=== PATIENT | male | born 1950 | race Two or more races ===

== ENCOUNTER 2024-05-27 09:20 | Day surgery (SDC) | payer BC, SELFPAY ==
[2024-05-27] VITALS (14 sets, daily range): BP systolic 124–163; BP diastolic 66–92; BMI 24.2
[2024-05-27 11:26] LABS: ACT-LR - POC 347 Seconds (116-155)
--- NOTE | 2024-05-27 12:56 | ITS.CL.CATH ---
Switch Engineer - Catheterization
Cardiac Catheterization
Procedure Report:
CARDIAC CATHETERIZATION REPORT
Date of Procedure: 05/27/2024
Referring: Omer Garcia DO
Indication: Persistent and worsening angina despite minimally abnormal stress test
HEMODYNAMIC DATA
AO: 156/81
LV: 156/17
LEFT VENTRICULOGRAPHY: Normal left ventricular wall motion with EF 63%
CORONARY ANGIOGRAPHY
Dominance: Right
Left Main: Normal
LAD: Moderate calcification with 30% ostial/proximal stenosis. There is 90% mid LAD stenosis distal to the takeoff of the first septal garment form assembler and large bifurcating D1. There is 30% mid LAD stenosis about 20 mm more distally. The distal LAD
has trivial luminal disease. The large proximally bifurcating D1 has 80-90% stenosis in the much larger daughter branch starting at the ostium of the bifurcation site
Circumflex: Medium sized ramus intermedius branch is free of disease. OM1 and OM 2 are tiny branches. There is 30% proximal and 50% mid stenoses in the large terminal OM 3.
RCA: Large dominant vessel with 30% proximal RCA stenosis and 40% RCA stenosis in the midportion proximal to the crux. The large bifurcating PDA and large posterolateral system have trivial luminal disease.
Angioplasty: At the conclusion of the diagnostic study, we proceeded with LAD PCI. This was to be a complex intervention involving the large daughter branch of D1 and the mid LAD. Heparin was used for anticoagulation. Ultimately Integrilin double
bolus without infusion was given in the middle of the procedure and Plavix 600 mg at the procedure conclusion. A short BMW wire was advanced into the first diagonal branch. It was quite difficult to navigate this wire into the severely diseased
daughter branch distal to the bifurcation site but we were able to get this accomplished. A long BMW wire was then advanced and we were not able to get this across the severe calcific mid LAD stenosis. This wire was replaced with a whisper wire
which we were able to navigate with difficulty into the distal LAD. At this point balloon angioplasty of the long 80-90% D1 stenosis was accomplished with a 2.0 x 15 trek balloon to 8 jaylene. The lesion was dramatically improved after balloon
angioplasty and we followed with placement of a 2.0 x 18 [place] CAMILLA deployed at 14 jaylene. The angiographic result was outstanding and there was complete stent expansion. At this point, we turned our attention to the LAD lesion. It was clear
that we would have to halfway D1 with an appropriately placed stent to treat the LAD lesion. The ostium of D1 was not significantly stenosed and I felt the risk of plaque shift compromising the origin of D1 would be quite low. Balloon angioplasty of
the LAD lesion was accomplished with the 2.0 x 12 trek to 12 jaylene with serial inflations to treat the length of the lesion. We then placed a 3.0 x 28 Xience [place] CAMILLA to cover the entire segment of LAD disease. The stent was deployed at 14 jaylene.
Following stent deployment the patient experienced ongoing chest discomfort with anterior ST elevation on the monitor. Angiography showed the stented LAD to be widely patent; however, the first diagonal branch was now occluded at its origin.
Neither a BMW nor a whisper wire could be advanced through the side struts of the LAD stent into the large bifurcating D1. Fortunately, we were able to get a Fielder XT wire through the side struts of the LAD stent and into the stented daughter
branch of D1. Flow has been spontaneously restored. We then performed balloon angioplasty with a 2.0 x 12 trek balloon to 12 jaylene to treat the ostium of D1 and to dilate the LAD stent struts. This restored excellent flow into the diagonal branch.
At this point, we postdilated the LAD stent with a 3.0 NC trek to 17 jaylene along its entire length. We then attempted unsuccessfully to pass a 2.0 x 12 [place] CAMILLA into the diagonal branch with a plan to stent back to the origin of the diagonal (T
stent). The stent would not advance across the struts of the LAD stent. The undeployed stent was carefully removed and a more aggressive balloon inflation with a 2.0 x 12 NC trek to 14 jaylene was performed into D1. This maneuver did not allow easy
passage of the stent across the struts of the LAD stent and angiography demonstrated an excellent result with balloon angioplasty alone. We therefore did not use more aggressive measures such as use of a guide liner to get a stent into the diagonal
branch. LAD and diagonal stent wires were removed and final angiography performed in multiple projections demonstrating an outstanding angiographic result both in the LAD and in the diagonal branch with normal antegrade flow in both branches and no
residual stenosis.
Closure Device: None-the procedure was performed via the right radial artery. The Crispin's test was normal prior to the procedure.
Radiation (mGy): 822
DAP (cm2.Gy): 59.9
Fluoroscopy time: 20.8 minutes
CONCLUSIONS
1: Systemic hypertension
2: Normal left ventricular function with EF 63%
3. Multivessel CAD as described
4. Culprit vessel PCI to treat complex mid LAD and D1 disease
5. Successful placement of 3.0 x 28 Xience CAMILLA in the LAD
6. Successful placement of 2.0 x 18 [place] CAMILLA in the first diagonal branch
7. Successful rescue of plaque shift ostial occlusion of D1 following placement of LAD stent using 2.0 mm angioplasty
8. Recommend dual antiplatelet therapy for 12 months and aggressive risk factor modification efforts
Copy to: Omer Garcia DO, Donald Hope DO
Richard Cottrell MD, [facility], [facility]
--- NOTE | 2024-05-27 13:15 | PTCARENOTE ---
Received pt from medical laboratory specialist. Right radial site CDI. VSS, SR on tele monitor. EDucated on limb restrictions and expected OOB time. Oriented to room and unit. Call fernandez within reach.
[2024-05-27 13:23] LABS: Glucose - Point of Care 131 mg/dl (70-99)
--- NOTE | 2024-05-27 15:48 | CM ---
CM following for DC planning needs.
Met w/ patient at bedside to complete initial assessment.
Pt. reports that he resides in a private home w/ his spouse.
He is functionally indep. prior to admission w/ ADLs, mobility without the use of any assisted device.
Anticipated DC plan is for home, no needs.
Will cont. to follow.
[2024-05-27 16:24] LABS: Glucose - Point of Care 166 mg/dl (70-99)
[2024-05-27] MEDS: ADVAIR HFA 45/21 MCG INHALER 2 PUFF INH (20:53)
[2024-05-27 22:39] LABS: Glucose - Point of Care 145 mg/dl (70-99)
--- NOTE | 2024-05-28 01:37 | PTCARENOTE ---
Patient is sleeping at this time. No changes from Initial assessment. Right radial site CDI. SR in 70s on tele. will continue to monitor
[2024-05-28 03:57] VITALS: BP 131/79
[2024-05-28 04:30] LABS: Hemoglobin 12.7 g/dL (13.0-18.0); Mean Corp Hgb Conc. 34.3 g/dL (33.0-37.0); Mean Corpuscular Hgb 31.2 pg (27.0-31.0); Mean Corpuscular Volume 90.9 fL (80.0-94.0); Mean Platelet Volume 10.3 fL (7.4-10.4); Platelet Count 205 10^3/uL (130-400); Red Blood Cell Count 4.07 10^6/uL (4.70-6.10); Red Cell Dist. Width 11.9 % (11.5-14.5); White Blood Cell Count 8.5 10^3/uL (4.8-10.8)
[2024-05-28 04:56] LABS: Blood Urea Nitrogen 15 mg/dl (9-20); Calcium 9.2 mg/dl (8.4-10.2); Carbon Dioxide 27 mmol/L (22-30); Chloride 104 mmol/L (98-107); Estimated Creatinine Clearance 88 ml/min; Glucose 139 mg/dl (70-99); HDL Cholesterol 42 mg/dl; LDL Cholesterol, Calculated 53 mg/dl; Potassium 3.8 mmol/L (3.5-5.1); Sodium 138 mmol/L (135-145); Total Cholesterol 116 mg/dl (50-199); Triglyceride 106 mg/dl (10-149); Very Low Density Lipoprotein 21 mg/dl (0-30); eGFR > 60.00
[2024-05-28 06:00] VITALS: BMI 23.6
[2024-05-28] MEDS: ADVAIR HFA 45/21 MCG INHALER 2 PUFF INH (07:36)
[2024-05-28 07:54] VITALS: BP 136/82
[2024-05-28 07:59] LABS: Glucose - Point of Care 149 mg/dl (70-99)
[2024-05-28] MEDS: PROSCAR 5 MG PO (09:17)
[2024-05-28] MEDS: COZAAR 25 MG PO (09:20)
[2024-05-28] MEDS: PEPCID 20 MG PO (09:20)
[2024-05-28] MEDS: IMDUR (EXTENDED RELEASE) 30 MG PO (09:21)
[2024-05-28] MEDS: ORETIC 12.5 MG PO (09:21)
--- NOTE | 2024-05-28 09:31 | W.PN.UPDATE ---
Update Note
Progress Note Update
Mr. Nuno feels well s/p cath with PCI. Right radial site healed, no bruit/hematoma. Stable vitals, labs and tele. All questions answered, reviewed d/c medications and instructions and he and his verbalized understanding. Stable for d/c
home today.
--- NOTE | 2024-05-28 09:34 | W.DS.TRANS ---
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
-
Discharge Instructions:
Discharge Diagnosis/Procedures Angioplasty and stent x1 to Left Anterior
Descending and x1 to Diagonal arteries
Diet Low Cholesterol,Diabetic, Carb Controlled
Driving Restrictions No driving for 24 hours
Other Services Cardiac Rehab
Instructions:
Stand-Alone Forms: DC Instructions- Cath/EP Lab
Changes to Home Medications: Yes
Discharge Medications:
DC Medications w/original date entered in [employer]
aspirin 81 mg tablet,delayed release 81 mg PO DAILY 05/27/24
atorvastatin 40 mg tablet 40 mg PO QPM #90 tabs 05/27/24
clopidogrel 75 mg tablet 75 mg PO DAILY #90 tabs 05/27/24
dutasteride 0.5 mg capsule 0.5 mg PO DAILY 05/27/24
famotidine 20 mg tablet 20 mg PO DAILY 05/27/24
fluticasone 100 mcg-salmeterol 50 mcg/dose blistr powdr for inhalation 1 inh inhalation BID 05/27/24
hydrochlorothiazide 12.5 mg tablet 12.5 mg PO DAILY 05/27/24
isosorbide mononitrate 30 mg tablet,extended release 24 hr 30 mg PO DAILY 05/27/24
losartan 25 mg tablet 25 mg PO DAILY 05/27/24
meclizine 25 mg tablet 25 mg PO TIDPRN PRN dizziness, vertigo 05/27/24
metformin 500 mg 24 hr tablet,extended release (gastric retention) 500 mg PO BID 05/27/24
nitroglycerin 0.4 mg sublingual tablet 0.4 mg sublingual [id number] PRN chest pain #25 tabs 05/27/24
pantoprazole 40 mg tablet,delayed release 40 mg PO BID #60 tabs 05/27/24
Home Medication Changes
Lipitor, Plavix, Protonix are new.
Pending Results: No
[2024-05-28 09:49] LABS: Glycohemoglobin (HgbA1c) 6.8 % (4.0-5.6)
--- NOTE | 2024-05-28 10:37 | W.PN.CD ---
Today's Communication / Plan
-
OK for d/c home
Impression / Plan
-
CAD s/p CAMILLA x2
- cont aspirin plavix Imdur
- atorvastatin 40
GERD
- cont famotidine
HTN
- cont losartan and hctz
Subjective: CP free overall feels well and anticipating d/c home
Physical Exam
Vital Signs/Labs
Vital Signs
Temp Pulse Resp BP Pulse Ox
98.2 F 71 18 136/82 97
05/28/24 07:51 05/28/24 08:00 05/28/24 07:51 05/28/24 07:54 05/28/24 07:51
05/27/24 05/28/24 05/29/24
06:59 06:59 06:59
Actual Weight 150 lb 12.739 oz
05/28/24 04:10
05/28/24 04:10
Triglycerides 106 mg/dl (10-149) 05/28/24 04:10
LDL Cholesterol, Calc 53 mg/dl 05/28/24 04:10
VLDL Cholesterol, Calc 21 mg/dl (0-30) 05/28/24 04:10
HDL Cholesterol 42 mg/dl 05/28/24 04:10
Physical Exam
Constitutional: No acute distress and Comfortable
Cardiovascular: Rhythm & rate is regular and Pedal edema is absent
Respiratory: Respiratory effort normal
GI: Soft
Neuro/Psych: AO x 3
Data Reviewed
-
Date of Service: May 28, 2024
EKG: Tracing Personally Visualized and interpreted (sr)
Labs: Labs Reviewed by me
--- NOTE | 2024-05-28 10:40 | PTCARENOTE ---
Assumed care of pt from night RN. Pt refused awake and alert, Ox3. VSS, CM shows NSR 80-90's, POX 97% on RA. Right radial site remains CDI with normal CMS. Pt denies any pain or discomfort. For potential D/C today.
[2024-05-28 12:11] VITALS: BP 126/81
[2024-05-28 13:02] LABS: Glucose - Point of Care 118 mg/dl (70-99)
--- NOTE | 2024-05-28 14:00 | PTCARENOTE ---
All D/C instructions reviewed with pt sand spouse. All questions answered. Pt D/C'd home with spouse.
[2024-05-30 08:32] LABS: ACT-LR - POC > 397 Seconds (116-155)
[2024-05-30 08:32] LABS: ACT-LR - POC > 397 Seconds (116-155)
== END 2024-05-28 14:01 | disposition home or self-care (01) ==
LOC: CATH 09:20
PROVIDERS: Nurse Practitioner; ATTENDING PHYSICIAN Internal Medicine Cardiovascular Disease
DX: I25.110 Atherosclerotic heart disease of native coronary artery with unstable angina pectoris (principal); I10 Essential (primary) hypertension; E78.5 Hyperlipidemia, unspecified; E11.9 Type 2 diabetes mellitus without complications; N40.0 Benign prostatic hyperplasia without lower urinary tract symptoms; K21.9 Gastro-esophageal reflux disease without esophagitis; J45.909 Unspecified asthma, uncomplicated; I67.1 Cerebral aneurysm, nonruptured; R94.39 Abnormal result of other cardiovascular function study; Z79.02 Long term (current) use of antithrombotics/antiplatelets; Z79.82 Long term (current) use of aspirin
CPT/HCPCS: 80048; 80061; 82962; 83036; 85027; 85347; 93005; 93458; 94640; C1725; C1769; C1874; C1894; C9600; C9601; J1327; Q9967

== ENCOUNTER 2024-06-09 11:02 | Emergency (ER) | payer BC, SELFPAY ==
[2024-06-09 11:10] VITALS: BP 140/80
[2024-06-09 11:16] VITALS: BMI 25.1
[2024-06-09 11:20] VITALS: BP 126/76
[2024-06-09 11:33] LABS: % Basophils 0.4 % (0-2); % Eosinophils 2.4 % (0-6); % Immature Granulocytes 0.4 % (0-0.5); % Lymphocytes 16.5 % (20.5-51.1); % Monocytes 5.1 % (1.7-9.3); % Neutrophils 75.2 % (42.2-75.2); Absolute Eosinophils 0.2 10^3/uL (0-0.7); Absolute Lymphocytes 1.2 10^3/uL (1.2-3.4); Absolute Monocytes 0.4 10^3/uL (0.1-0.6); Absolute Neutrophils 5.3 10^3/uL (1.4-6.5); Hematocrit 38.3 % (39.0-52.0); Mean Corp Hgb Conc. 33.9 g/dL (33.0-37.0); Mean Corpuscular Hgb 31.6 pg (27.0-31.0); Mean Corpuscular Volume 93.2 fL (80.0-94.0); Mean Platelet Volume 10.2 fL (7.4-10.4); Nucleated Red Blood Cells % 0 % (-); Platelet Count 259 10^3/uL (130-400); Red Blood Cell Count 4.11 10^6/uL (4.70-6.10); Red Cell Dist. Width 11.9 % (11.5-14.5); White Blood Cell Count 7.1 10^3/uL (4.8-10.8)
--- NOTE | 2024-06-09 11:37 | ED.GENMED ---
History of Present Illness
General
Chief Complaint: Chest Pain
Source: patient
Time Seen by Provider: 06/09/24 11:15
History of Present Illness
History of Present Illness:
72-year-old male presents to the emergency room complaining of chest pain. Patient has been having episodes of chest pain today that he describes as like his angina. It is a pressure type sensation. Patient had been having angina and underwent a
cardiac catheterization about 2 weeks ago. He states he has been taking his Plavix and aspirin since the procedure. He had a couple episodes of chest discomfort with activity that went away with nitro over the past few days. However today the
pain began at rest. He took a nitro causing it to go away. About an hour later he had a second episode relieved by nitro followed by a third. At this point he decided come to the emergency room for evaluation. Patient is pain-free at the time of
my evaluation.
Phy Exam
Physical Exam
Physical Exam:
General: Awake, Alert, Oriented X3. No acute distress.
Vitals: unremarkable
Head: Atraumatic
Eyes: Pupils equal, EOMI
Throat: Airway intact, no exudates
Neck: Trachea midline
Lungs: Clear and equal b/l
Heart: Regular rate, no murmurs
Abd: Soft, Nontender, No pulsatile mass
Neuro: Nonfocal
Skin: Warm, dry, no rash
Extremities: pulses equal b/l, no edema
Scores
Heart Score for Chest Pain Patients
STEMI patient?: No
History: Moderately Suspicious
ECG: Nonspecific Repolarization
Age: >/= 65 years
Risk Factors: >/= 3 Risk Factors or History of CAD
Troponin: </= Normal Limit
Heart Score for Chest Pain Patients: 6
Heart Score Risk: 20.3% MACE over next 6 weeks
Course
Orders/Labs/Results
Orders:
Orders
06/09/24 11:04
Electrocardiogram (*1) Urgent
Reason for Study: Chest Pain
EKG- Treatment ONCE
06/09/24 11:26
Complete Blood Count/With Diff Urgent
Comprehensive Metabolic Panel Urgent
Troponin I Urgent
06/09/24 11:29
CR Chest - 2 Views Urgent
Comment:
Reason For Exam: chest pain
06/09/24 13:27
Troponin I Urgent
Abnormal Lab Results
06/09/24
11:26
RBC 4.11 L 10^6/uL
(4.70-6.10)
Hct 38.3 L %
(39.0-52.0)
MCH 31.6 H pg
(27.0-31.0)
Lymphocytes % 16.5 L %
(20.5-51.1)
Glucose 130 H mg/dl
(70-99)
06/09/24 11:26
06/09/24 11:26
Vital Signs
Initial and Last Documented VS:
Initial Vital Signs
Temp Pulse Resp BP Pulse Ox
98.0 F 82 16 140/80 98
06/09/24 11:10 06/09/24 11:10 06/09/24 11:10 06/09/24 11:10 06/09/24 11:10
Last Documented Vital Signs
Temp Pulse Resp BP Pulse Ox
98.0 F 76 21 130/71 95
06/09/24 11:10 06/09/24 14:56 06/09/24 14:56 06/09/24 14:56 06/09/24 14:56
MDM/Problems Addressed
Differential Diagnosis Includes:
Unstable angina, NSTEMI, pericarditis
MDM/Problems Addressed:
Patient presents complaining of chest pain similar to the type of pain that resulted in his cardiac catheterization. Fortunately his troponin is normal x 2. The patient was evaluated by cardiology given his recent catheterization and recurrent
chest pain. Cardiology does not believe the patient's symptoms reflects angina particularly given 2 negative troponins. Patient will be discharged home for close follow-up with cardiology.
Chronic conditions affecting care: HTN and CAD
*Radiology
Radiology exam reviewed: radiology read reviewed
*Pulse Oximetry
Patient hypoxic: no
*EKG
Interpreted by ED Provider?: Yes
Interpretation: normal
Comparison EKG: no changes
Heart Rate: 81
Rate: normal
Rhythm: sinus
[place]: normal axis
Interval: normal interval
QRS Pattern: normal QRS
Ischemia: non-specific ST changes
*Financial Administrator Interpretation
Rate: normal
Interpretation: normal
Rhythm: sinus
*Critical Care Note
Total Time (30-74mins, 75-104mins- exclusive of procedures): Not Applicable
Data Reviewed
Review of Other/Old Records Reveals: Operative Reports (Cardiac cath report) and Progress Notes (Cardiology notes)
Patient Management
Social determinants of health affecting care: Strong social support
ED Attending Note
-
Portions of this chart may have been created with voice recognition software.� Occasional wrong word or��sound alike� substitutions may have occurred due to the inherent limitations of voice recognition software.
Discharge Plan
Departure
Patient Disposition: Home (Routine Discharge)
Date of Disposition: 06/09/24
Time of Disposition: 14:52
Patient with high blood pressure during this ER visit?: No
Condition: Good
Discharge Problem:
Chest pain
Instructions: Chest Pain CBC Follow Up, BLOOD PRESSURE
Prescriptions:
No Action
isosorbide mononitrate 30 mg Tablet Extended Release 24 Hr
30 mg PO DAILY
aspirin 81 mg Tablet,Delayed Release (Dr/Ec)
81 mg PO DAILY
famotidine 20 mg Tablet
20 mg PO DAILY
meclizine 25 mg Tablet
25 mg PO TIDPRN PRN (Reason: dizziness, vertigo)
losartan 25 mg Tablet
25 mg PO DAILY
fluticasone propion-salmeterol 100-50 mcg/dose Blister With Device
1 inh INHALATION BID
dutasteride 0.5 mg Capsule
0.5 mg PO DAILY
metformin 500 mg Tablet,Er Eduardo.Retention 24 Hr
500 mg PO BID
hydrochlorothiazide 12.5 mg Tablet
12.5 mg PO DAILY
atorvastatin 40 mg Tablet
40 mg PO QPM Qty: 90 5RF
clopidogrel 75 mg Tablet
75 mg PO DAILY Qty: 90 5RF
pantoprazole 40 mg Tablet,Delayed Release (Dr/Ec)
40 mg PO BID Qty: 60 5RF
nitroglycerin 0.4 mg tablet, sublingual
0.4 mg sublingual [id number] PRN (Reason: chest pain) Qty: 25 5RF
Referrals:
Donald Hope DO [Family Provider] -
Omer Garcia DO [Non-Admitting Privileges] - Call in 1-3 days for appt
Activity Restrictions/Additional Instructions:
You are clear for cardiac rehab
Interventions
Interventions:
*Risk Screen - Suicide Last Done: 06/09/24 11:16
*General Assessment Last Done: 06/09/24 11:16
*Neglect/Abuse Screening Last Done: 06/09/24 11:16
ED- Fall Risk Assessment Last Done: 06/09/24 11:16
*ED COVID-19 Vaccine History Last Done: 06/09/24 11:16
*Nursing Disposition Last Done: 06/09/24 14:59
ED- Cardiac Assessment Last Done: 06/09/24 11:16
Discharge Date and Time
Discharge Date/Time: 06/09/24 15:04
Print Language: FIJIAN
[2024-06-09 11:54] LABS: ALT (SGPT) 28 U/L (0-50); AST (SGOT) 26 U/L (17-59); Albumin 4.5 g/dl (3.5-5.0); Alkaline Phosphatase 97 U/L (38-126); Blood Urea Nitrogen 10 mg/dl (9-20); Calcium 9.5 mg/dl (8.4-10.2); Carbon Dioxide 27 mmol/L (22-30); Chloride 103 mmol/L (98-107); Estimated Creatinine Clearance 85 ml/min; Glucose 130 mg/dl (70-99); Potassium 4.2 mmol/L (3.5-5.1); Sodium 138 mmol/L (135-145); Total Bilirubin 0.8 mg/dl (0.2-1.3); Total Protein 6.8 g/dl (6.3-8.2); eGFR > 60.00
[2024-06-09 11:56] LABS: Troponin I < 0.012 ng/ml
[2024-06-09 13:02] VITALS: BP 116/78
[2024-06-09 14:00] VITALS: BP 113/82
[2024-06-09 14:01] LABS: Troponin I < 0.012 ng/ml
--- NOTE | 2024-06-09 14:31 | CON.CAR ---
Consultation
Consultation Request
Date/Time Consultation Requested: 06/09/24
Date/Time Consultation Performed: 06/09/24
Requesting Provider: Dr. Peña
Performing Provider: Dr. Benoit
Reason for Consultation: Chest Pain
Medical History
-
Chief Complaint: Chest pain
History of Present Illness:
73-year-old male (known to Dr. Garcia, his primary Circulation Crew Leader) with coronary artery disease status-post recent CAMILLA to LAD and CAMILLA to D1 (05/27/2024), hypertension,, hyperlipidemia, and GERD presenting with chest pain this morning. He had 3
episodes, which prompted him to go to the ER. The patient admits to eating spicy food last evening. The chest pain is still described as an achy sensation that is non-exertional, but relieved by nitroglycerin. He felt mildly short of breath with
the episodes of chest pain. He denies palpitations, syncopal events, or lower extremity swelling.
Past Medical History
Past Medical History: CAD (Recent PCI), GERD, HTN, Hypercholesterolemia and NIDDM
Past Surgical History: Cardiac (Recent CAMILLA x 2), Urological (Orchiectomy) and Other (Hernia repair)
Social History
Tobacco: Non-Smoker
Alcohol: Occasional
Drug: None
Personal:
Living: With Family
Family History
Family History: Reviewed & Not Pertinent
Allergies / Home Medications
Allergy/AdvReac Type Severity Reaction Status Date / Time
No Known Allergies Allergy Verified 06/09/24 11:13
�Medication �Instructions �Recorded �Confirmed �Type
aspirin 81 mg tablet,delayed 81 mg PO DAILY 05/27/24 05/27/24 History
release
atorvastatin 40 mg tablet 40 mg PO QPM #90 tabs 05/27/24 Rx
clopidogrel 75 mg tablet 75 mg PO DAILY #90 tabs 05/27/24 Rx
dutasteride 0.5 mg capsule 0.5 mg PO DAILY 05/27/24 05/27/24 History
famotidine 20 mg tablet 20 mg PO DAILY 05/27/24 05/27/24 History
fluticasone 100 mcg-salmeterol 50 1 inh inhalation BID 05/27/24 05/27/24 History
mcg/dose blistr powdr for
inhalation
hydrochlorothiazide 12.5 mg tablet 12.5 mg PO DAILY 05/27/24 05/27/24 History
isosorbide mononitrate 30 mg 30 mg PO DAILY 05/27/24 05/27/24 History
tablet,extended release 24 hr
losartan 25 mg tablet 25 mg PO DAILY 05/27/24 05/27/24 History
meclizine 25 mg tablet 25 mg PO TIDPRN PRN dizziness, 05/27/24 05/27/24 History
vertigo
metformin 500 mg 24 hr 500 mg PO BID 05/27/24 05/27/24 History
tablet,extended release (gastric
retention)
nitroglycerin 0.4 mg sublingual 0.4 mg sublingual [id number] PRN 05/27/24 Rx
tablet chest pain #25 tabs
pantoprazole 40 mg tablet,delayed 40 mg PO BID #60 tabs 05/27/24 Rx
release
Review of Systems
-
History Source: Patient
All other systems: Negative unless noted
Physical Exam
Vital Signs
Temp Pulse Resp BP Pulse Ox
98.0 F 73 22 113/82 96
06/09/24 11:10 06/09/24 14:00 06/09/24 14:00 06/09/24 14:00 06/09/24 14:00
Lab Results
06/09/24 11:26
06/09/24 11:26
Troponin I < 0.012 ng/ml 06/09/24 13:27
Physical Exam
General: No Apparent Distress and Comfortable
HEENT: Normocephalic
Respiratory: Clear
Cardiac: S1/S2 and Regular Rhythm
Breast: N/A
GI: Soft
Rectal: Deferred by Provider
Musculoskeletal: No Clubbing, No Cyanosis and No Edema
Skin: Warm and Dry
Neuro: AO x 3
Hematologic/Lymphatic: No Lymphadenopathy
Psych: Calm
Impression / Plan
-
73-year-old male (known to Dr. Garcia, his primary Circulation Crew Leader) with coronary artery disease status-post recent CAMILLA to LAD and CAMILLA to D1 (05/27/2024), hypertension,, hyperlipidemia, and GERD presenting with chest pain this morning. He had 3
episodes, which prompted him to go to the ER. The patient admits to eating spicy food last evening. The chest pain is still described as an achy sensation that is non-exertional, but relieved by nitroglycerin. He felt mildly short of breath with
the episodes of chest pain. He denies palpitations, syncopal events, or lower extremity swelling.
Chest pain in patient with CAD with recent stent:
-Most likely related to GERD.
-No objective signs suggestive of ACS; EKG is unremarkable and cardiac enzymes negative.
-Will add metoprolol tartrate 12.5 mg twice daily.
-Continue aspirin/Plavix, atorvastatin, and isosorbide mononitrate 30 mg daily.
-Patient instructed to avoid spicy foods.
-Outpatient follow-up with his pick up operator as scheduled in the next few weeks; outpatient echocardiogram.
Hypertension:
-Blood pressure currently controlled; continue current doses of hydrochlorothiazide, isosorbide mononitrate, and losartan.
-Adding metoprolol to tartrate as above.
Hyperlipidemia:
-Continue current dose of atorvastatin.
GERD:
-Continue Protonix twice daily.
-Patient instructed to avoid spicy foods.
Disposition: Patient can be discharged to home; outpatient follow-up with his primary Circulation Crew Leader.
Data Reviewed
-
EKG: Report Reviewed by me (Sinus rhythm.)
Labs: Labs Reviewed by me, Discussed with Physician (ER Attending), Discussed with Patient and Discussed with Family ( at bedside)
Old Records: Reviewed (Recent hospitalization for PCI)
[2024-06-09 14:56] VITALS: BP 130/71
== END 2024-06-09 15:04 | disposition home or self-care (01) ==
LOC: EMR 11:02
PROVIDERS: EMERGENCY PHYSICIAN Emergency Medicine; FAMILY PHYSICIAN Family Medicine; OTHER PHYSICIAN Internal Medicine Cardiovascular Disease
DX: R07.89 Other chest pain (principal); E11.9 Type 2 diabetes mellitus without complications; I25.10 Atherosclerotic heart disease of native coronary artery without angina pectoris; I10 Essential (primary) hypertension; K21.9 Gastro-esophageal reflux disease without esophagitis; E78.00 Pure hypercholesterolemia, unspecified; Z79.02 Long term (current) use of antithrombotics/antiplatelets; Z79.82 Long term (current) use of aspirin; Z79.899 Other long term (current) drug therapy; Z90.79 Acquired absence of other genital organ(s); Z95.5 Presence of coronary angioplasty implant and graft
CPT/HCPCS: 99283; 71046; 80053; 84484; 85025; 93005

== ENCOUNTER 2024-07-01 14:11 | Inpatient (IN) | payer BC, SELFPAY ==
[2024-07-01] VITALS (24 sets, daily range): BP systolic 70–199; BP diastolic 47–113; BMI 23.4
[2024-07-01 09:55] LABS: Glucose - Point of Care 138 mg/dl (70-99)
[2024-07-01] MEDS: NSS 197 ML IV (10:08)
[2024-07-01 11:58] LABS: ACT-LR - POC 279 Seconds (116-155)
[2024-07-01 13:09] LABS: ACT-LR - POC > 397 Seconds (116-155)
[2024-07-01 13:09] LABS: ACT-LR - POC 363 Seconds (116-155)
[2024-07-01 13:09] LABS: ACT-LR - POC > 397 Seconds (116-155)
[2024-07-01 13:30] LABS: ACT-LR - POC 265 Seconds (116-155)
[2024-07-01 13:43] LABS: % Basophils 0.6 % (0-2); % Eosinophils 2.2 % (0-6); % Immature Granulocytes 0.8 % (0-0.5); % Lymphocytes 19.7 % (20.5-51.1); % Monocytes 6.3 % (1.7-9.3); % Neutrophils 70.4 % (42.2-75.2); Absolute Eosinophils 0.1 10^3/uL (0-0.7); Absolute Monocytes 0.3 10^3/uL (0.1-0.6); Absolute Neutrophils 3.6 10^3/uL (1.4-6.5); Hematocrit 34.3 % (39.0-52.0); Mean Corpuscular Hgb 31.4 pg (27.0-31.0); Mean Corpuscular Volume 89.8 fL (80.0-94.0); Mean Platelet Volume 10.1 fL (7.4-10.4); Nucleated Red Blood Cells % 0 % (-); Platelet Count 233 10^3/uL (130-400); Red Blood Cell Count 3.82 10^6/uL (4.70-6.10); Red Cell Dist. Width 11.9 % (11.5-14.5); White Blood Cell Count 5.1 10^3/uL (4.8-10.8)
[2024-07-01 13:44] LABS: B.E. -9.7 mmol/L; HCO3 19.7 mmol/L (21-28); PCO2 58 mmHg (35-48); PO2 348 mmHg (83-108)
[2024-07-01 13:50] LABS: O2 Therapy 100
[2024-07-01 13:52] LABS: pH 7.14 (7.35-7.45)
--- NOTE | 2024-07-01 14:20 | ITS.CL.CATH ---
Lasting Machine Operator - Catheterization
Cardiac Catheterization
Procedure Report:
CARDIAC CATHETERIZATION REPORT
Date of Procedure: 07/01/2024
Referring: Omer Garcia DO
Indication: Recurrent angina (unstable with rest pain) 5 weeks following complex LAD and diagonal PCI
�
HEMODYNAMIC DATA
AO: 141/76
LV: Not done
�
LEFT VENTRICULOGRAPHY: Not done
�
CORONARY ANGIOGRAPHY
Dominance: Right
Left Main: Normal
LAD: 30% ostial stenosis with widely patent mid LAD stent (CAMILLA 04/2024) without restenosis. The bifurcating first diagonal branch has 80-90% ostial stenosis with a patent stent in the larger daughter branch and diffuse disease in the smaller
daughter branch.
Circumflex: The circumflex gives rise to a tiny OM1 and a large OM 2 which has 40% mid stenosis
RCA: Dominant vessel with diffuse mild luminal irregularities
Angioplasty: Given his unstable symptoms, we opted to reattempt to treat the ostium of the diagonal branch with angioplasty followed by stenting. Of note, stenting of the ostium could not be accomplished through the side struts of the LAD stent at
the time of the prior procedure. Heparin was used for anticoagulation. The patient has been compliant with aspirin and Plavix therapy. A 6 [place] EBU 3.75 guide catheter was used. A BMW wire was passed into the LAD and could not be easily passed
into the diagonal branch and was parked in the distal LAD as we needed to keep a wire in the LAD. A Fielder XT wire was then advanced into the LAD and we were able to get this wire into the diagonal branch but not into the larger daughter branch
distal to the bifurcation. The wire would only select the smaller daughter branch. We attempted to pass a whisper wire into the larger daughter branch but this also would only select the smaller branch. Patient began to experience chest
discomfort (identical to what he had been experiencing over the past 4 weeks) and angiography showed shutdown of the diagonal branch. A 1.5 x 10 Euphora balloon was advanced into the diagonal and inflated to 8 jaylene. This restored flow into the
diagonal and his chest pain completely resolved. Angioplasty was then accomplished with a 2.0 mm x 10 Euphora balloon. Cardiothoracic surgery was consulted to come to the Lasting Machine Operator in case the patient needed to go urgently to the operating room.
Both Dr. Hussein and Dr. Faulkner were on hand for the duration of the procedure. Once again, we made numerous attempts to get the wire into the larger previously stented daughter branch of the diagonal but these were unsuccessful. A twin pass catheter
was advanced and using this device we were able to get a wire into the larger daughter branch. Angioplasty was performed and we were preparing for stent placement. The patient's blood pressure gradually declined to 80. A bolus of IV fluid and
phenylephrine 200 mcg was administered with transient improvement in blood pressure. We requested assistance from echo. Flow in the diagonal was compromised again. We were able to get a 2.0 x 12 Gustine CAMILLA into the diagonal and balloon inflation to
14 jaylene was used to deploy the stent. Angiography subsequently showed clear evidence of extravasation from most likely the smaller upper diagonal branch into the pericardial space. The likelihood was that this represented a guidewire perforation.
Emergency pericardiocentesis was performed. The patient rapidly became hypotensive and anesthesia was called to intubate the patient. Epinephrine was administered. He was subsequently intubated by anesthesia while we were performing emergency
pericardiocentesis. Pericardium was entered on the first attempt with a micropuncture wire. A 6 [place] Island[place] sheath was placed. 60 cc of blood was withdrawn. The drain was attached to a suction bottle and a total of approximately 300 cc of blood was
removed. Echo suggested near resolution of the effusion and the intrapericardial pressure was 7. We were unable to restore normal flow in the diagonal branch and a decision was made to proceed to the operating room for grafting of the diagonal,
LAD, and examination of the pericardium. Blood pressure remained in the 120-140 systolic range. The last ACT drawn was 265. No protamine was administered as we did not want the stent to clot off and the pericardial effusion had been successfully
managed. A femoral venous sheath had been placed and was secured with a suture for transport to the OR along with the right radial artery sheath and the pericardial drain.
CONCLUSIONS
1:�PCI of the large diagonal branch with balloon angioplasty and stent placement complicated by sluggish antegrade flow and cardiac tamponade likely due to wire perforation from the smaller superior branch of the diagonal
2:�Emergent transfer to OR for CABG x 2
3. I reviewed the angiogram and the events with the patient's and attempted to provide emotional support at this difficult time. His prognosis is guarded
�
�
Copy to: Omer Garcia DO, Donald Hope DO
�
Richard Cottrell MD, FACC, [facility]
[2024-07-01 14:30] LABS: ACT+ - POC 148 Seconds (82-134)
--- NOTE | 2024-07-01 14:34 | W.PN.ANESINT ---
Anesthesia Intubation Note
- Intubation Note
Intubation Note:
Diagnosis: pericardial tamponade
Blade: videoscope MAC 4
Tube Size: 8.0 hi-lo
Depth: 23 @ teeth
Side Taped: right
Drugs Used:50 mg ketamine, 120 mg succinylcholine
Grade View: 1
EtCO2 Present: yes, confirmed via color change
Atraumatic: yes
Attempts: 1
Insertion Start and Stop Time:1342
SaO2 Pre: 92
SaO2 Post: 99
Glidescope Used: yes
Other Airway Adjustments: n/a
Pre-Oxygenated: yes
Portable Chest X-Ray: n/a
RSI: yes
Suctioned:
Bilateral Breath Sounds Confirmed: yes
Vent Settings: Vt 550 , RR 15, 100% fio2, PEEP 5
Settings per ___Attending Physician
Anesthesia called to Pipe Line Repairer 1 for emergent intubation of unstable patient due to suspected pericardial tamponade. Dr. Kinesy present. RSI with ketamine, sux. Pt intubated. Propofol gtt started at 1342 per request of interventional
thread marker at 50 mcg/kg/min, 50 mg rocuronium also given. Propofol gtt stopped at 1347 due to hypotension. 2 mg ativan given at 1347. Hemodynamics managed by cathode maker team. Pt transferred emergently to [facility] via portable monitor, ventilation
via ambubag. Pt stable throughout transport, not on vasopressors. Care transferred to cardiac anesthesia team.
--- NOTE | 2024-07-01 14:55 | CON.INTV ---
Consultation
Consultation Request
Date/Time Consultation Requested: 07/01/2024 - 162
Date/Time Consultation Performed: 07/01/2024 - 145
Requesting Provider: VAISHNAVI Murphy
Performing Provider: Dr. Ceballos
Reason for Consultation: s/p CABG
Medical History
-
Chief Complaint: Chest pain
History of Present Illness:
73-year-old male with a past medical history of CAD s/p CAMILLA x 2 (mid LAD + diagonal branch), GERD, hypertension and DM type II who presented with recurrent angina X 5 weeks and underwent left heart catheterization today. Patient recently in the ER
here at [facility] on 06/09/2024 with chest pain, described as pressure-like. He had a left heart catheterization 2 weeks prior to that and was taking Plavix and aspirin since that time. He was seen by cardiology in the ER at that time,
however troponins were negative x 2 with unremarkable EKG, and CP was thought to be non-anginal and due to GERD. Patient normally sees artist woodblock of [place] with Dr. Garcia, and was referred here to [facility] [address] for left
heart catheterization which he obtained today. [facility] today showed widely patent mid LAD stent without restenosis, and an 80-90% ostial stenosis in the first diagonal branch. PCI was attempted of the large diagonal branch with balloon angioplasty and
stent placement which was complicated by sluggish antegrade flow and cardiac tamponade likely due to wire perforation of the smaller superior branch of the diagonal branch and he was transferred emergently to the OR for CABG x 2. Patient then
transferred to CVICU postoperatively and critical care services consulted for additional management/recommendations.
When I saw the patient he was in bed, intubated on VC/AC at 500/16/40%/5, with PIP of 24 cmH2O, breathing at 16 breaths/min with VTe 459 mL. Current heart rate 50, BP via right radial A-line is 132/75, saturating 100%. He is on Levophed at
4mcg/min andn sedated with precedex at 0.7mcg/kg/hr. He has mediastinal chest tube x 2 and a left pleural chest tube x 1.
PMHx: CAD s/p PCI, GERD, hypertension, hyperlipidemia, DM type II
PSHx: Coronary stents X2, orchiectomy, hernia repair
Past Medical History
Past Medical History: Other (Above as per HPI)
Past Surgical History: Other (Above as per HPI)
Social History
Tobacco: Non-smoker
Alcohol: Occasional
Drug: None
Personal:
Living: With Family
Family History
Family History: Reviewed & Not Pertinent
Allergies / Home Medications
Allergies
Allergy/AdvReac Type Severity Reaction Status Date / Time
dust Allergy wheezing Uncoded 07/01/24 09:48
and runny
nose
Home Medications
�Medication �Instructions �Recorded �Confirmed �Last Taken �Type
aspirin 81 mg tablet,delayed 81 mg PO DAILY 05/27/24 07/01/24 07/01/24 06:10 History
release
clopidogrel 75 mg tablet 75 mg PO DAILY #90 tabs 05/27/24 07/01/24 07/01/24 06:10 Rx
dutasteride 0.5 mg capsule 0.5 mg PO DAILY 05/27/24 07/01/24 07/01/24 06:10 History
famotidine 20 mg tablet 20 mg PO DAILY 05/27/24 07/01/24 07/01/24 06:10 History
fluticasone 100 mcg-salmeterol 50 1 inh inhalation BIDPRN PRN SOB 05/27/24 07/01/24 06/27/24 07:00 History
mcg/dose blistr powdr for
inhalation
hydrochlorothiazide 12.5 mg tablet 12.5 mg PO DAILY 05/27/24 07/01/24 07/01/24 06:10 History
isosorbide mononitrate 30 mg 30 mg PO DAILY 05/27/24 07/01/24 07/01/24 06:10 History
tablet,extended release 24 hr
losartan 25 mg tablet 25 mg PO DAILY 05/27/24 07/01/24 07/01/24 06:10 History
meclizine 25 mg tablet 25 mg PO TIDPRN PRN dizziness, 05/27/24 07/01/24 1 Year Ago History
vertigo ~07/01/23
nitroglycerin 0.4 mg sublingual 0.4 mg sublingual [id number] PRN 05/27/24 07/01/24 07/01/24 01:30 Rx
tablet chest pain #25 tabs
pantoprazole 40 mg tablet,delayed 40 mg PO BID #60 tabs 05/27/24 07/01/24 07/01/24 06:10 Rx
release
atorvastatin 40 mg tablet 40 mg PO DAILY 07/01/24 07/01/24 07/01/24 06:10 History
metformin 500 mg tablet,extended 500 mg PO BID 07/01/24 07/01/24 06/29/24 17:45 History
release 24hr (osmotic)
metoprolol succinate 25 mg 25 mg PO QPM 07/01/24 07/01/24 06/30/24 17:30 History
tablet,extended release 24 hr
Review of Systems
-
Unable to Obtain full review of systems at this time due to: Patient Intubation
Vitals / Labs / Diagnostic Testing
Vital Signs
Temp Pulse Resp BP Pulse Ox
97.8 F 72 20 140/73 98
07/01/24 09:39 07/01/24 09:39 07/01/24 09:39 07/01/24 09:39 07/01/24 09:39
Lab Data
07/01/24 13:31
Laboratory Results
07/01/24
13:30
pH 7.14 L*
pCO2 58 H
pO2 348 H
HCO3 19.7 L
O2 Delivery Level 100
Diagnostic Testing:
Physical Exam
-
HEENT: Normocephalic, Anicteric and Other (ETT in place)
Cardiovascular: S1/S2 and Peripheral Edema (Negative)
Respiratory: Wheeze (Negative), Rales (Negative), Rhonchi (Negative) and Other (Mechanical breath sounds heard bilaterally)
GI: Soft, Non Distended, Non Tender and Normal Bowel Sounds
Neurology: Tremors (Negative) and Other (Sedated)
Skin: Warm and Dry
General: Respiratory Distress (Negative), Comfortable, Chills (Negative) and Sweats (Negative)
Assessment
-
Assessment: 73-year-old male with a past medical history of CAD s/p CAMILLA x 2 (mid LAD + diagonal branch), GERD, hypertension and DM type II who presented with recurrent angina X 5 weeks and underwent left heart catheterization today. Patient
recently in the ER here at [facility] on 06/09/2024 with chest pain, described as pressure-like. He had a left heart catheterization 2 weeks prior to that and was taking Plavix and aspirin since that time. He was seen by cardiology in the
ER at that time, however troponins were negative x 2 with unremarkable EKG, and CP was thought to be non-anginal and due to GERD. Patient normally sees artist woodblock of [place] with Dr. Garcia, and was referred here to [facility] for left heart catheterization which he obtained today. [facility] today showed widely patent mid LAD stent without restenosis, and an 80-90% ostial stenosis in the first diagonal branch. PCI was attempted of the large diagonal branch with
balloon angioplasty and stent placement which was complicated by sluggish antegrade flow and cardiac tamponade likely due to wire perforation of the smaller superior branch of the diagonal branch and he was transferred emergently to the OR for CABG
x 2. Patient then transferred to CVICU postoperatively and critical care services consulted for additional management/recommendations.
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
Impression:
#PCI of large diagonal branch due to 80-90% ostial stenosis c/b cardiac tamponade + sluggish anterograde flow s/p CABG x2
#Recurrent angina with history of CAD s/p PCI with CAMILLA x2 to mid LAD + diagonal branch
#Anemia
#Metabolic + respiratory acidosis
Plan:
Ventilator settings reviewed
FiO2 will be weaned to maintain SpO2 >90-94%
Minute ventilation will be adjusted to compensate for respiratory acidosis; trend pH + pCO2 with goal pH 7.35�7.45
Arterial blood gases will be monitored
Spontaneous breathing trial will be attempted with hopeful extubation after anesthesia/sedation wear off
prn nebulized bronchodilators
Pulmonary artery catheter parameters will be followed
Pressors/antihypertensive/inotropes/diuretics will be provided as needed
Maintain MAP>65
Replete electrolytes with K>4, Mg>2
Monitor chest tube output (left pleural chest tube + mediastinal chest tubes x 2)
Monitor hemoglobin
Monitor platelet count and coags
Transfuse blood product if needed to keep Hb>7-8g/dL and plt>50k (given post-operative status)
CT surgery manage chest tubes
Monitor blood sugar with goal BG 140-180
Insulin drip per protocol
Aspiration precautions
VAP prevention protocol
DVT prophylaxis
Early nutrition
Early mobilization
Critical care statement: A total of 46 minutes of critical care time was provided for this patient today. This includes management of ventilator, spontaneous breathing trial, arterial blood gases, pressors, of unstable vital signs, evaluation of the
patient at bedside, reviewing the patient's pertinent medical records including radiographs, microbiology, laboratory evaluations, and discussion with primary team and critical care nursing.
[2024-07-01 15:19] LABS: B.E. - POC -2.8 mmol/L; Glucose - POC 220 mg/dl (65-99); HCO3 - POC 22 mmol/L (21-29); Hematocrit - POC 34 % PCV (42-52); Hemodilution- POC Yes; Hemoglobin Calculated - POC 11.5; O2 Saturation %Calculated-POC 99.9 5 (92-96); PCO2 - POC 37 mmHg (35-45); PO2 - POC 281 mmHg (80-100); POC Comment PRE; Potassium - POC 3.3 mmol/L (3.6-5.0); Sodium - POC 142 mmol/L (135-145); pH - POC 7.38 (7.35-7.45)
[2024-07-01 15:44] LABS: ACT+ - POC > 1003 Seconds (82-134)
--- NOTE | 2024-07-01 15:44 | CM ---
spoke with pts in room, pt in OR , she tells me that her husb was prev indep, lives with his in a 2 story home with 1 step to enter. she is agreeable to a f/u visit from the ct transitional care nurse after dc. pt has no dme's. she has the
cardiac surgery book. cm role explained and all questions answered,
--- NOTE | 2024-07-01 15:59 | HPS.HSE ---
Family Physician
-
Family Physician: Yair Hope
Chief Complaint
-
Chest Pain
History of Present Illness
73-year-old male known to Dr. 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 During the
left heart cath patient continue have chest pain and angiography showed shutdown of the diagonal branch. CT surgery was consulted during this event and angioplasty was attempted, however, patient's blood pressure continued to decline into the 80s
and patient was started on phenylephrine. An urgent echo was requested and flow in the diagonal was compromised. Angiography subsequently showed a saturation from the upper diagonal branch into the pericardial space, therefore, a emergent
pericardiocentesis was performed. Patient became hypotensive and anesthesia was called to intubate the patient. In the Shell Machine Operator they were unable to restore normal flow to the diagonal branch and the decision was made to proceed to the operating
room for grafting of the diagonal and LAD. Preoperative orders were placed along with blood products because the patient is on Plavix. Dr. Faulkner spoke with patient's and consent was obtained.
Medical History
Past Medical History
Past Medical History: Reports CAD, GERD, HTN, Hypercholesterolemia, NIDDM and MS
Past Surgical History: Reports Other (Unable to obtain)
Additional Past Surgical History:
unable to obtain
Social History
Unable to obtain full social history at this time due to: Patient Intubation
Family History
Family History: CAD
Allergies / Home Medications
Allergies reflects when Allergies were last updated in Workspace.
Home Medications with original date entered in Workspace
Allergy/Medication List:
Dust
If medication reconciliation has not been performed, why?: Unresponsive
Review of Systems
-
Unable to obtain full review of systems at this time due to: Patient Intubation
Physical Exam
Vital Signs
Vital Signs
Temp Pulse Resp BP Pulse Ox
97.8 F 72 20 140/73 98
07/01/24 09:39 07/01/24 09:39 07/01/24 09:39 07/01/24 09:39 07/01/24 09:39
Physical Exam
General: Appears in Distress and Intubated
HEENT: NormoCephalic
Respiratory: Clear
Cardiac: S1/S2
Breast: Deferred by me
GI: Soft
Rectal: Deferred by Provider
Genito-urinary: Du
Skin: Warm and Dry
Neuro: Sedated
Hematologic/Lymphatic: No Lymphadenopathy
Psych: Other (sedated)
Laboratory Results
-
07/01/24 13:31
Laboratory Results
pH 7.14 (7.35-7.45) L* 07/01/24 13:30
pCO2 58 mmHg (35-48) H 07/01/24 13:30
pO2 348 mmHg (83-108) H 07/01/24 13:30
HCO3 19.7 mmol/L (21-28) L 07/01/24 13:30
Data Reviewed
-
Critical Care Time (in minutes): 30
Diagnostic Radiology: Discussed with Physician
Ultrasound: Image Personally Visualized and interpreted
Impression/Plan
-
IMPRESSION:
#Pericardial effusion
#CAD
#HTN
#HLD
#DM2
PLAN:
Patient emergently taken to the OR for a CABG x2 with Dr. Faulkner
[2024-07-01 16:20] LABS: B.E. - POC -1.5 mmol/L; Glucose - POC 185 mg/dl (65-99); HCO3 - POC 23 mmol/L (21-29); Hematocrit - POC 28 % PCV (42-52); Hemodilution- POC Yes; Hemoglobin Calculated - POC 9.7; Ionized Calcium - POC 1.02 mmol/L (1.12-1.27); O2 Saturation %Calculated-POC 99.9 5 (92-96); PCO2 - POC 37 mmHg (35-45); PO2 - POC 341 mmHg (80-100); POC Comment OPCAB; Potassium - POC 3.4 mmol/L (3.6-5.0); Sodium - POC 140 mmol/L (135-145); pH - POC 7.41 (7.35-7.45)
[2024-07-01 16:24] LABS: ACT+ - POC 112 Seconds (82-134)
[2024-07-01 16:25] LABS: B.E. - POC -1.1 mmol/L; Glucose - POC 189 mg/dl (65-99); HCO3 - POC 23 mmol/L (21-29); Hematocrit - POC 28 % PCV (42-52); Hemodilution- POC Yes; Hemoglobin Calculated - POC 9.4; Ionized Calcium - POC 1.35 mmol/L (1.12-1.27); O2 Saturation %Calculated-POC 99.9 5 (92-96); PCO2 - POC 37 mmHg (35-45); PO2 - POC 291 mmHg (80-100); POC Comment OPCAB POST PROTAMINE; Sodium - POC 142 mmol/L (135-145); pH - POC 7.41 (7.35-7.45)
--- NOTE | 2024-07-01 17:14 | W.PN.CT.SURG ---
CT Surgery Operative Note
-
CARDIAC SURGERY OPERATIVE REPORT
Preoperative Diagnosis: Intrapericardial bleeding and unstable angina
Postoperative Diagnosis: Same
Procedure(s) Performed:
1. Sternotomy
2. Off-pump beating heart CABG x 2 [in situ DUTTA to LAD, ao�RSVG�diagonal]
3. Endoscopic vein harvest of the right lower extremity
4. Transesophageal echocardiography
5. Transonic flow probe assessment left graft
6. Removal of intrapericardial drain
Date of Surgery: 07/01/2024
Comorbidities:
1. Unstable Angina with Multi vessel CAD
2. Unsuccessful PCI to Large Diagonal Vessel
3. Intrapericardial Bleeding from wire perforation
4. HTN
5. HLD
6. NIDDM
7. Prior ID with PCI with stents x 2 in April of 2024
Attending Surgeon: Fabián Faulkner MD, MS
Doweling Machine Operator Surgeon: Sina Hussein MD (Due the acute nature of this case, and potential for complications, two attending surgeons was deemed appropriate to help with assisting, exposure, retraction, and verification)
Assistants: Jacqueline Ornelas PA-C (present and necessary to administrative sales assistant, endoscopic vein harvest, retraction, suction, exposure, suture management, and wound closure under my direction)
Anesthesiology: Augustus Kinsey MD and Piedad Cloud CRNA
Scrub and Circulating RNs: Precious Cabrera RN, Lupe Hughes RN
Squadron Worker: Angelo Prado CCP
Anesthesia: GETA
EBL: per perfusion records
Products: 2 prbcs and 1 plts (second unit incoming)
Implants: None
Indication(s) for Procedures: This is a 73-year male who underwent elective PCI and attempted stenting to the first diagonal branch. Consultation was obtained during his Store Group Manager procedure as there was difficulty gaining access to the previous
stent in the first diagonal. He was having unstable angina and presented to the hospital from the emergency department. His medical history consist of a recent ID in April 2024 where he underwent stenting of both his proximal to mid LAD and
proximal diagonal. Initially flow was able to be regained in the diagonal vessel however following stenting there was evidence of intrapericardial contrast with extravasation as well as sluggish flow in the diagonal vessel. Intrapericardial drain
was placed which drained approximately 250 cc of blood with additional wasted 60 cc of blood in the syringe. Multidisciplinary discussion between his wellness assistant, my partner and myself was to move forward with surgical intervention
in the form of bypass the diagonal vessel as well as obtaining hemostasis. Due to the multiple manipulation attempts of the proximal diagonal vessel near the LAD stent, we all felt it was prudent to proceed with DUTTA to LAD bypass as there was
potential for deformation of the previous LAD stent.
Conduit(s) Quality/Internal Diameter:
DUTTA -good, small/approximately 1.5-1.75 mm
RSVG -excellent/uniform with minimal varicosities mm
Target(s) Quality:
Dx -good/accommodated a 1.5 mm shunt, there is evidence of a possible plaque shift or dissection of the proximal vessel as there was minimal flow in the artery upon opening, once the shunt was placed flow was restored and we also had decent
backbleeding into the vein graft. Flow probe assessment demonstrated a mean flow of approximately 12 mL/min with a pulsatility index of less than 4.
LAD -good/easily accommodated a 2.0 mm shunt, the graft performed after the previous stent. The flow probe assessment of the graft demonstrated flow in the teens with a pulsatility index of less than 4.
Findings: Left ventricular ejection fraction initially was hyperdynamic in the 70s with no significant regional wall motion abnormalities. He also had no significant ST changes upon starting the case. Following surgery his EF remained the same at
65% with no new regional wall motion abnormalities. The DUTTA was harvested in a skeletonized fashion. Each graft was verified with Doppler probe to have excellent signals and flow. He did not require any inotropic support to maintain sinus rhythm.
He did require blood products as listed above. There was some bruising of the epicardial surface along the second smaller branch of the first diagonal vessel which was covered with hemostatic agent to good effect. He did have generalized oozing
as he was on DAPT therapy following his recent stent.
Description of Procedure: The patient was taken to the operating room urgently. Their identity and procedure to be performed were verified and they were positioned supine on the operating table. Induction via general anesthesia with endotracheal
intubation was performed during his Store Group Manager procedure and central venous access and arterial monitoring were already inserted. A preoperative transesophageal echocardiogram was performed to assess cardiac function and valvular function. The patient
was then prepped and draped from chin to feet in a sterile fashion. A preoperative time-out was performed with all members of the team present. A midline chest incision was performed along with median sternotomy. Simultaneous endoscopic access of
the left lower extremity for saphenous vein harvest was obtained along with administration of an initial 5,000 units of IV heparin. The pericardium was then opened and pericardial stay sutures were placed. There is minimal amount of
intrapericardial hematoma and only a small amount of oozing from the diagonal branch as described above. The median sternotomy retractor was then removed and exchanged for a A RulTract sternal retractor was positioned to exposure the left internal
mammary bed. The mammary was harvested and found to have good flow. A medium clip was applied to the distal end of the mammary after dividing it. It was wrapped in a papaverine soaked RayTec and replaced back into the left hemithorax. The RulTract
was exchanged for a median sternal retractor. Full heparinization was given (a total of 30,000 units). We created a pericardial well. The ACT was confirmed to be over 400. The patient's temperature was allowed to drift down to 35 �C. Temporary
alligator clip pacing wires were placed in the room and available if needed.
The decision was made to first expose the diagonal vessel as this was the culprit lesion. A lap pad was placed behind the heart the pericardium was dropped on the right side. An off-pump retractor was used to help with exposure. A Rogers blade
was used to expose the diagonal vessel after the stent and a small arteriotomy was created enlarged with Douglas scissors. A 1.5 mm coronary shunt was inserted. The vein graft was then beveled accordingly and end-to-side anastomosis was created 7-0
Prolene in a running fashion and secured with a micro core knot. Sterile saline was used to test the anastomosis for both hemostasis and flow. After measuring the length of the graft to the aorta, 4.3 mm heartstring device was used to create an
aortotomy and to perform the proximal anastomosis. This was done in end-to-side fashion with 6-0 Prolene in a running fashion and secured with a micro core knot. A suitable target on the mid/distal left anterior descending was identified. We
dissected and prepared the distal target and created a coronary arteriotomy and placed a 2.0 mm coronary shunt. We retrieved the DUTTA from the chest and created a pericardial opening while being cognizant of the phrenic nerve to facilitate the
course of the mammary. The distal end of the mammary was prepped and beveled to size. We verified orientation and length of the COLIN and found brisk flow. An end-to-side anastomosis was created with a 7-0 prolene. A suitable site on the large
diagonal branch was chosen. We dissected and prepared the distal target in a similar fashion and placed []mm coronary shunt. An end-to-side anastomosis was created with a 7-0 prolene. Appropriate hemostasis and flow were confirmed. The graft was
measured for length to the aorta and cut. All bypass grafts were inspected and were free from kinking or twisting and Doppler probe was used to examine flow to the grafts. The distal and proximal anastomoses appeared hemostatic. A test dose of
protamine was administered and the patient was monitored for any adverse reaction before resuming protamine. The mammary bed was inspected and hemostasis was confirmed. Once the mediastinum was hemostatic, #19 Adams drain was placed in the left
pleural cavity and two #24 Adams drains were placed within the pericardium. The sternum was approximated with 4 #7 single and 3 #8 double stainless steel wires. Fascia was approximated with #1 vicryl suture. The subcutaneous, dermis and epidermis
were closed in layers in a running fashion. The skin wound was cleansed and dressed.
All instrument, sponge, and needle counts were confirmed to be correct x 2 at the end of the operation. The patient was transferred to the cardiac intensive care unit in critical but stable condition.
I, Dr. Fabián Faulkner, was present, scrubbed for, and performed all critical elements of this procedure.
Fabián Faulkner MD, MS
Cardiothoracic Surgeon
[facility]
This operative dictation was created using the CBRITE dictation system. Please excuse any grammatical, typographical, or 'sound alike' errors
[2024-07-01 17:19] LABS: B.E. -0.4 mmol/L; HCO3 22.6 mmol/L (21-28); PCO2 31 mmHg (35-48); PO2 210 mmHg (83-108); Potassium 3.3 mMOL/L (3.5-5.1); Sodium 136 mMOL/L (136-145); pH 7.47 (7.35-7.45)
[2024-07-01 17:22] LABS: Ionized Calcium 1.16 mMOL/L (1.15-1.33)
[2024-07-01 17:25] LABS: Glucose - Point of Care 178 mg/dl (70-99)
[2024-07-01 17:26] LABS: Mixed Venous O2 Saturation 99.9 %
[2024-07-01 17:27] LABS: Hematocrit 33.2 % (39.0-52.0); Hemoglobin 11.9 g/dL (13.0-18.0)
[2024-07-01 17:28] LABS: Platelet Count 158 10^3/uL (130-400)
--- NOTE | 2024-07-01 17:30 | PTCARENOTE ---
Pt received from CVOR at 1700; Sedated and intubated; NSR rhythm on monitor; Placed on judd hugger, other VSS; DP and Radial pulses present; Lungs diminished at bases; ETT size 8 and 23 at lip; Ventilator settings SIMV 500/16/5 FiO2 40%; CTx3 to -20
cm wall suction, no air leak, tidaling, or crepitus noted; Hypoactive BS; Du catheter in place draining yellow urine; Surgical sites CDI; Right A-line and PIVx2 all lines zeroed and level; RIJ Cordis inserted by PARVIZ Christopher; Levo, Precedex, and
Insulin infusing see flow sheet for details; See nursing documentation for further details.
[2024-07-01 17:32] LABS: INR 1.46; PT 17.5 Sec (11.4-14.6)
[2024-07-01 17:33] LABS: Blood Urea Nitrogen 9 mg/dl (9-20); Estimated Creatinine Clearance 99 ml/min; Glucose 158 mg/dl (70-99); Magnesium 1.8 mg/dl (1.6-2.3)
[2024-07-01] MEDS: CALCIUM CHLORIDE 10% SYRINGE 50 ML IV (17:42)
[2024-07-01] MEDS: CALCIUM CHLORIDE 10% SYRINGE 50 MG IV (17:42)
[2024-07-01] MEDS: KCL 50 IV ×2 (17:43→18:52)
[2024-07-01 17:50] LABS: ALT (SGPT) 17 U/L (0-50); AST (SGOT) 22 U/L (17-59); Albumin 2.6 g/dl (3.5-5.0); Alkaline Phosphatase 48 U/L (38-126); Calcium 8.1 mg/dl (8.4-10.2); Carbon Dioxide 24 mmol/L (22-30); Chloride 108 mmol/L (98-107); Potassium 3.3 mmol/L (3.5-5.1); Sodium 136 mmol/L (135-145); Total Bilirubin 0.6 mg/dl (0.2-1.3); Total Protein 4.5 g/dl (6.3-8.2)
[2024-07-01] MEDS: VERSED 1 MG IV (17:50)
[2024-07-01] MEDS: CALCIUM CHLORIDE 10% SYRINGE 1000 MG IV (17:50)
--- NOTE | 2024-07-01 17:54 | W.PN.UPDATE ---
Update Note
Progress Note Update
IV fluids: 2000
U.O.:� 1000
Blood:� 2Uprbcs and 1plts intraop
Pressors:� levophed
Sedatives:� precedex
�
NEURO: sedated on precedex, pupils +3mm B/L
RESP: #8OT @25cm> 16/500/60/5 Lungs clear B/L. 2 mediastinal (50cc on arrival) and L pleural (20cc on arrival) chest tubes to -20cm suction. Sanguineous drainage
CV: RRR +S1, S2, no S3, no�rub, no murmur. Dermabond to median sternotomy. Right fem sheath
ABD: round, soft, no BS
EXT: no edema, +2/4 DP pulses B/L, no femoral bruit, RLE RODERICK wrap intact; right radial sheath 6fr A-line intact
: Du with clear yellow urine
�
A/P: POD #0 s/p emergent CABG x2
RODY: EF�65%
- wean and extubate
- awaiting one pool of platelets from blood bank
- monitor CT output and UOP
- Will place RIJ cordis and remove femoral sheath
- EKG sent to cards
- will start ASA in 6 hours
- Plavix tomorrow
- BB when able
�
# acute surgical blood loss anemia-expected
- trend CBC
�
�
# T2DM (A1C pending)
- insulin infusion x 48h
�
# Hyperlipidemia
- resume�statin when tolerating PO
[2024-07-01 18:12] LABS: Glucose - Point of Care 121 mg/dl (70-99)
[2024-07-01] MEDS: TYLENOL PO ×2 (18:14→22:45)
[2024-07-01] MEDS: NSS 500 IV (18:14)
[2024-07-01 18:15] LABS: Mixed Venous O2 Saturation 52.6 %
[2024-07-01] MEDS: NEURONTIN PO ×2 (18:15→22:30)
[2024-07-01] MEDS: PACERONE PO ×2 (18:15→22:31)
[2024-07-01] MEDS: ANCEF 10 IV ×2 (18:21)
[2024-07-01] MEDS: BACTROBAN 2% OINTMENT 1 APPLIC NASAL ×2 (18:21→22:22)
[2024-07-01] MEDS: LR 500 IV ×2 (18:51→20:09)
[2024-07-01 19:10] LABS: Glucose - Point of Care 122 mg/dl (70-99)
[2024-07-01 20:08] LABS: Glucose - Point of Care 122 mg/dl (70-99)
[2024-07-01 20:51] LABS: Glucose - Point of Care 114 mg/dl (70-99)
[2024-07-01] MEDS: SENOKOT-S PO (21:00)
[2024-07-01 21:05] LABS: Mixed Venous O2 Saturation 45.1 %
[2024-07-01 21:10] LABS: Hematocrit 28.5 % (39.0-52.0); Hemoglobin 10.4 g/dL (13.0-18.0); Platelet Count 230 10^3/uL (130-400)
[2024-07-01 21:11] LABS: B.E. -1.8 mmol/L; HCO3 20.9 mmol/L (21-28); O2 Saturation % 99.8 % (94-98); O2 Therapy %Oxygen/Room Air 40%; PCO2 28 mmHg (35-48); PO2 200 mmHg (83-108); pH 7.48 (7.35-7.45)
[2024-07-01 21:14] LABS: Ionized Calcium 1.39 mMOL/L (1.15-1.33)
[2024-07-01] MEDS: DOBUTREX 500 MG 250 IV (21:23)
[2024-07-01 21:46] LABS: Platelet Count 227 10^3/uL (130-400)
[2024-07-01 21:54] LABS: INR 1.32; PT 16.2 Sec (11.4-14.6)
[2024-07-01 21:55] LABS: APTT 32.1 Sec (23.4-35.0); Fibrinogen 216 MG/DL (199-459)
--- NOTE | 2024-07-01 21:58 | PTCARENOTE ---
RT in room and pt placed on CPAP at 2145. ABG's due at 2215
[2024-07-01 22:04] LABS: Glucose - Point of Care 119 mg/dl (70-99)
[2024-07-01] MEDS: ANCEF 5 IV (22:22)
[2024-07-01 22:28] LABS: B.E. -1.6 mmol/L; HCO3 22.9 mmol/L (21-28); O2 Saturation % 99.8 % (94-98); PCO2 37 mmHg (35-48); PO2 153 mmHg (83-108)
[2024-07-01 22:42] LABS: Mixed Venous O2 Saturation 63.2 %
--- NOTE | 2024-07-01 22:42 | PTCARENOTE ---
ABG's reviewed; RT at bedside; Pt extubated at 2240; Pt placed on 6L NC.
[2024-07-01] MEDS: OFIRMEV 100 IV (22:45)
[2024-07-01] MEDS: ZOFRAN 4 MG IV (22:53)
--- NOTE | 2024-07-01 22:54 | RESPNOTE ---
pt extubated per MD order.pt was suctioned down ETT and orally prior to extubation. extubated without incident, pt able to vocalized, no stridor present. placed on 6L NC tolerating well
[2024-07-01] MEDS: LOW STRENGTH ASPIRIN 81 MG PO (23:09)
[2024-07-02] VITALS (63 sets, daily range): BP systolic 70–146; BP diastolic 51–127; BMI 24.8
[2024-07-02 00:13] LABS: Glucose - Point of Care 95 mg/dl (70-99)
--- NOTE | 2024-07-02 01:16 | PTCARENOTE ---
assumed care of patient @ 1900. received pt laying in bed, AOx3. Drowsy postop. pt with many questions about his surgery answered by this RN and CTPA, education provided including postoperative recovery course. WITT. BP extremely labile, titrating
levo to keep map >65. +pulses, no edema. lungs clear, diminished on 6L 02 satting 100 percent. 3 chest tubes L pleural and 2 mediastinals to wall suction no air leak, tidaling or crepitus noted. Belly hypoactive. Du present draining clear yellow
urine. All inscisions CDI. PIV x3 patent, R IJ cordis and R arterial sheath patent. Levo currently at 4, dobut at 3, insulin per protocol. pt currently resting comfortably sleeping between care .
[2024-07-02 02:23] LABS: Glucose - Point of Care 136 mg/dl (70-99)
--- NOTE | 2024-07-02 04:00 | PTCARENOTE ---
labs drawn and sent,pt washed, turned, new linens. BP remains very unstable, positional changes result in SBP 50s maps in the 40s. Sinus tach on monitor, HR goes up to 120s when BP drops. No other change in assessment .
[2024-07-02 04:11] LABS: Glucose - Point of Care 127 mg/dl (70-99)
[2024-07-02 04:13] LABS: Hematocrit 26.8 % (39.0-52.0); Hemoglobin 9.5 g/dL (13.0-18.0); Mean Corp Hgb Conc. 35.4 g/dL (33.0-37.0); Mean Corpuscular Volume 84.5 fL (80.0-94.0); Mean Platelet Volume 10.2 fL (7.4-10.4); Platelet Count 243 10^3/uL (130-400); Red Blood Cell Count 3.17 10^6/uL (4.70-6.10); Red Cell Dist. Width 13.2 % (11.5-14.5); White Blood Cell Count 18.2 10^3/uL (4.8-10.8)
[2024-07-02 04:31] LABS: Blood Urea Nitrogen 13 mg/dl (9-20); Calcium 9.2 mg/dl (8.4-10.2); Carbon Dioxide 23 mmol/L (22-30); Chloride 111 mmol/L (98-107); Estimated Creatinine Clearance 85 ml/min; Glucose 126 mg/dl (70-99); Magnesium 1.5 mg/dl (1.6-2.3); Potassium 3.9 mmol/L (3.5-5.1); Sodium 138 mmol/L (135-145); eGFR > 60.00
[2024-07-02] MEDS: MAGNESIUM SULFATE 50 IV (04:59)
[2024-07-02] MEDS: ANCEF 5 IV ×2 (05:00→13:29)
[2024-07-02] MEDS: FLEXERIL 5 MG PO ×2 (05:02→13:57)
[2024-07-02] MEDS: TYLENOL 1000 MG PO ×3 (05:03→21:01)
[2024-07-02] MEDS: KCL 50 IV (05:07)
--- NOTE | 2024-07-02 05:20 | W.PN.CT ---
Today's Communication / Plan
-
Status post CABG: Aspirin, high intensity statin, beta-cheng will be on hold while on vasoactive medications. Will likely start Plavix today.
Check mixed venous blood gas will wean dobutamine slowly with goal mixed venous sat greater than 60%.
Wean Levophed as tolerated for goal MAP greater than 65
Sinus rhythm versus sinus tach. Tachycardia likely related to dobutamine. Will begin weaning today.
Chest tube output: M�420 overnight; P�115 overnight. Will likely keep today.
On nasal cannula and satting at 100%. Wean as tolerated for goal sat greater than 90%. Incentive spirometry encouraged.
May need some gentle diuresis today given the amount of volume he received postop.
Chest x-ray without significant change. There is no pneumothorax or sizable pleural effusion. Mediastinal silhouette is stable. Official report pending.
Nausea and vomiting this morning. Continue as needed Zofran. Belly soft.
H&H and platelet counts stable. Patient is status post 2 units packed red blood cells and 2 units of platelets. Chest tube output is within reasonable limits.
Neurologically intact.
Incision clean dry intact and sternum stable.
Out of bed. Ambulate. Cardiac rehab
Assessment / Plan
-
Coronary artery disease s/p Off-pump beating heart CABG x 2 [in situ DUTTA to LAD, ao�RSVG�diagonal] on 07/02/[address] Fabián Faulkner, POD #1
Intraop RODY: LVEF is approximately 60% with no RWMA, no valvular abnormalities. Post bypass exam is unchanged.
-Pericardial effusion s/p pericardiocentesis and subsequent intraop drainage
-USA
-Hypertension
-Hyperlipidemia
-Diabetes mellitus type
-Acute postoperative cardiogenic shock requiring dobutamine
-Acute postoperative distributive shock requiring Levophed
-Acute postoperative blood loss anemia requiring 2 units packed red blood cells
-Acute postoperative coagulopathy requiring 2 units platelets, likely secondary to Plavix
-Acute postoperative atelectasis
Subjective
Procedure
Feels okay. Lots of questions about what happened yesterday given that he had emergency surgery. I explained the perioperative details to him and indications for surgery and answered his questions to his satisfaction. He does complain of nausea.
He also complains of incisional discomfort.
-
Date of Service: July 02, 2024
Objective Data
-
Lab Results
07/02/24 04:01
07/02/24 04:01
PT 16.2 Sec (11.4-14.6) H 07/01/24 21:36
INR 1.32 07/01/24 21:36
APTT 32.1 Sec (23.4-35.0) 07/01/24 21:36
Vital Signs
Vital Signs
Temp Pulse Resp BP Pulse Ox
100.3 F 108 27 97/75 100
07/02/24 04:00 07/02/24 04:00 07/02/24 04:00 07/02/24 03:25 07/02/24 04:00
CT Intake/Output/Weight
07/01/24 07/01/24 07/02/24
06:59 18:59 06:59
Intake Total 600.5 / 1894.8 1294.3 / 1894.8
Output Total 515 / 1380 865 / 1380
Balance 85.5 / 514.8 429.3 / 514.8
SaO2: 100
Physical Exam
-
General: Awake, Oriented and AOx3
Cardiovascular: Regular rate & rhythm
Respiratory: Clear and Equal
Sternum: Stable
Incision: Clean, Dry and Intact
Extremities: No Edema
Data Reviewed
-
Lab Results: Results Reviewed
Medications: Active Meds Reviewed
Chest X-Ray: Image Reviewed
ECG: Image Reviewed
[2024-07-02] MEDS: LEVOPHED 250 IV (05:29)
[2024-07-02 05:30] LABS: Mixed Venous O2 Saturation 52.5 %
[2024-07-02 06:06] LABS: Glucose - Point of Care 118 mg/dl (70-99)
[2024-07-02 08:01] LABS: Glucose - Point of Care 105 mg/dl (70-99)
[2024-07-02 08:20] LABS: B.E. -1.4 mmol/L; HCO3 22.7 mmol/L (21-28); Ionized Calcium 1.28 mMOL/L (1.15-1.33); O2 Saturation % 99.5 % (94-98); PCO2 35 mmHg (35-48); PO2 141 mmHg (83-108); Potassium 4.1 mMOL/L (3.5-5.1); Sodium 137 mMOL/L (136-145); pH 7.42 (7.35-7.45)
[2024-07-02] MEDS: LOPRESSOR PO (09:13)
--- NOTE | 2024-07-02 09:16 | W.PN.CARD.SR ---
Sheath/IABP Sheath Removal
Sheath Removal
Right Arterial Radial:
Site appearance prior to sheath removal: Intact
Sheath removed by:: Physician engineer first assistant
Name of associate removing sheath: Jacqueline Ornelas PA-C
Time of sheath removal: 09:05
Time hemostasis achieved: 09:10
Site appearance post sheath removal: Intact
Method of Hemostasis Post Sheath Removal: External Pressure Device (TR band applied with 5cc air ) and Manual Pressure (manual pressure held x 5 min)
Name of device: TR Band placed by me with 5cc of air
Dressing dry and intact?: Yes
Comments: pt tolerated well, c/o parasthesias in R hand; good cap refill, normal pulse ox waveform with TR band in place; will monitor.
[2024-07-02] MEDS: BACTROBAN 2% OINTMENT 1 APPLIC NASAL ×2 (09:32→20:15)
[2024-07-02] MEDS: LIDOCAINE 4% PATCH 1 PATCH TOPICAL (09:32)
[2024-07-02] MEDS: PACERONE 200 MG PO ×3 (09:32→21:01)
[2024-07-02] MEDS: SENOKOT-S 1 TABLET PO ×2 (09:33→20:14)
[2024-07-02] MEDS: PROTONIX 40 MG PO (09:33)
[2024-07-02] MEDS: LOW STRENGTH ASPIRIN 81 MG PO (09:33)
[2024-07-02] MEDS: NEURONTIN 100 MG PO ×3 (09:33→21:01)
[2024-07-02] MEDS: MAGNESIUM OXIDE 500 MG PO ×2 (09:33→20:14)
[2024-07-02] MEDS: PLAVIX 75 MG PO (09:33)
--- NOTE | 2024-07-02 09:41 | PTCARENOTE ---
Patient received from lighter captain resting in bed, sleepy but arousable and AAO x 3. ST via cm, SaO2 @ 99% on 2lnc. RIJ Cordis w/CVP, R radial arterial sheath - leveled, flushed, and calibrated w/good waveforms returned. Mediastinal chest tubes x 2
(Y-connected to one pleurevac), L pleural chest tube, all to -20cm suction w/no air leaks noted. Du catheter to gravity. All procedural sites stable. Family at bedside. Dr. Faulkner and team to bedside, patient and family updated to plan of care for
the day, in agreement. See work list for full assessment, interventions performed, and intravenous infusions and titrations.
--- NOTE | 2024-07-02 10:35 | W.PN.INTV ---
Today's Communication / Plan
Recommendations
Up OOB as tolerated
Encourage incentive spirometer use 10x/hr for at least 4 hrs a day
Wean off dobutamine as tolerated
Wean off insulin drip while maintaining BG >140 + <180
Cardiac rehab consult
Patient remains CVICU status � once transferred to CVICU-telemetry status then inside polisher/pulmonary service will sign off at that time
Assessment
-
Assessment: 73-year-old male with a past medical history of CAD s/p CAMILLA x 2 (mid LAD + diagonal branch), GERD, hypertension and DM type II who presented with recurrent angina X 5 weeks and underwent left heart catheterization today. Patient
recently in the ER here at [facility] on 06/09/2024 with chest pain, described as pressure-like. He had a left heart catheterization 2 weeks prior to that and was taking Plavix and aspirin since that time. He was seen by cardiology in the
ER at that time, however troponins were negative x 2 with unremarkable EKG, and CP was thought to be non-anginal and due to GERD. Patient normally sees bag builder of [place] with Dr. Garcia, and was referred here to [facility] for left heart catheterization which he obtained today. [facility] today showed widely patent mid LAD stent without restenosis, and an 80-90% ostial stenosis in the first diagonal branch. PCI was attempted of the large diagonal branch with
balloon angioplasty and stent placement which was complicated by sluggish antegrade flow and cardiac tamponade likely due to wire perforation of the smaller superior branch of the diagonal branch and he was transferred emergently to the OR for CABG
x 2. Patient then transferred to CVICU postoperatively and critical care services consulted for additional management/recommendations.
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
Impression:
#PCI of large diagonal branch due to 80-90% ostial stenosis c/b cardiac tamponade + sluggish anterograde flow s/p CABG x2 (POD#1)
#Recurrent angina with history of CAD s/p PCI with CAMILLA x2 to mid LAD + diagonal branch
#Anemia
#Metabolic + respiratory acidosis
Plan:
Patient successfully extubated on 07/01 and is breathing comfortably on 2 L/min nasal cannula
Maintain SpO2 >90-94%
prn nebulized bronchodilators
Encourage incentive spirometer use 10x/hr for at least 4 hrs a day
Removal of right IJ cordis per CT surgery
Maintain MAP>65
Replete electrolytes with K>4, Mg>2
Monitor chest tube output (mediastinal chest tubes x 2)
Monitor hemoglobin
Monitor platelet count and coags
Transfuse blood product if needed to keep Hb>7-8g/dL and plt>50k (given post-operative status)
CT surgery managing chest tubes
Monitor blood sugar with goal BG 140-180
Insulin drip per protocol
Aspiration precautions
DVT prophylaxis
Early nutrition
Early mobilization
Patient remains CVICU status. Once downgraded then inside polisher/pulmonary service will sign off at that time.
Critical care statement: A total of 41 minutes of critical care time was provided for this patient today. This includes management of ventilator, spontaneous breathing trial, arterial blood gases, pressors, of unstable vital signs, evaluation of the
patient at bedside, reviewing the patient's pertinent medical records including radiographs, microbiology, laboratory evaluations, and discussion with primary team and critical care nursing.
Data:
CXR 07/02/2024:
Interval extubation. The additional support lines and tubes are stable in appearance.
Left basilar atelectasis, similar to prior.
Subjective Dataa
Subjective Data
Date of Service:
Date of Service: July 02, 2024
Chief Complaint: Stuntman Follow Up
Subjective:
Patient seen and evaluated today at bedside. On dobutamine at 2mcg/kg/min + insulin drip at 0.6 units/h. Mediastinal chest tubes x [address]; pleural chest tube removed. Currently on 2 L/min nasal cannula saturating 98%. Heart rate 124, BP
111/93. Right IJ cordis in place. He has no complaints at this time. Denies shortness of breath, headache, abdominal pain, fevers or chills.
Review of Systems
General: Other (Negative unless mentioned above)
Objective Data
Data Reviewed
Vital Signs / I&O / Oxygen:
Vital Signs
Temp Pulse Resp BP Pulse Ox
100 F 118 23 111/75 98
07/02/24 10:00 07/02/24 10:00 07/02/24 10:00 07/02/24 10:00 07/02/24 10:00
Intake and Output
07/01/24 07/02/24 07/03/24
06:59 06:59 06:59
Intake Total 1991.5 / 8.2 377.5 / 377.5
Output Total 1500 / 1535 125 / 125
Balance 492.5 / 493.2 252.5 / 252.5
SaO2 [CPAP] 100
SaO2 [A/C] 100
SaO2 [SIMV] 100
SaO2 98
Nasal Cannula flow liters per 2
minute
Physical Exam
General: Respiratory Distress (Negative) and Comfortable
HEENT: Normocephalic and Anicteric
Cardiovascular: S1-S2, Peripheral Edema (Negative) and Other (Tachycardic)
Respiratory: Wheeze (Negative), Crackles (Right anterior hemithorax), Rhonchi (Negative), Non-Labored Respirations and Chest Tube (Mediastinal chest tubes x 2)
GI: Soft, Non Distended, Non Tender and Normal Bowel Sounds
Neurology: Awake, Alert and Tremors (Negative)
Skin: Warm, Dry and Jaundice (Negative)
Labs/Micro/Reports
Lab Data
07/02/24 04:01
07/02/24 04:01
Laboratory Results
07/01/24 07/01/24 07/01/24
13:30 17:06 20:54
PT 17.5 H
INR 1.46
APTT 34.0
pH 7.14 L* 7.47 H 7.48 H
pCO2 58 H 31 L 28 L
pO2 348 H 210 H 200 H
HCO3 19.7 L 22.6 20.9 L
O2 Delivery Level 100 %oxygen/room air 40%
07/01/24 07/01/24 07/02/24
21:36 22:21 08:15
PT 16.2 H
INR 1.32
APTT 32.1
pH 7.40 7.42
pCO2 37 35
pO2 153 H 141 H
HCO3 22.9 22.7
O2 Delivery Level
[2024-07-02 11:10] LABS: Mixed Venous O2 Saturation 59.3 %
[2024-07-02] MEDS: LASIX 20 MG IV (11:50)
--- NOTE | 2024-07-02 12:00 | PTCARENOTE ---
VS remain stable. L pleural chest tube d/c'd w/out incident. MVO2 results conveyed to PARVIZ Ornelas, dobutamine titrated accordingly.
[2024-07-02 12:07] LABS: Glucose - Point of Care 91 mg/dl (70-99)
[2024-07-02 12:07] LABS: Glucose - Point of Care 123 mg/dl (70-99)
[2024-07-02] MEDS: NOVOLIN R INSULIN INFUSION 100 IV (13:27)
[2024-07-02] MEDS: FERRLECIT 110 MG IV (13:29)
[2024-07-02 13:59] LABS: Mixed Venous O2 Saturation 74.8 %
[2024-07-02 14:02] LABS: Glucose - Point of Care 135 mg/dl (70-99)
--- NOTE | 2024-07-02 14:33 | W.PN.CD ---
Today's Communication / Plan
-
-Extubated, clinically stable; mild sinus tachycardia on telemetry.
-Continue supportive care and routine postsurgical management as directed by CT Surgery.
Impression / Plan
-
73-year-old male (known to Dr. Janay Cagle, his primary Battery Checker) with coronary artery disease status-post CAMILLA to LAD and D1 (on 05/27/2024), hypertension, and hyperlipidemia who presented for elective cardiac catheterization on 07/01/2024.
Cardiac catheterization revealed widely patent mid LAD stent without restenosis, and an 80-90% ostial stenosis in the first diagonal branch. PCI was attempted of the large diagonal branch with balloon angioplasty and stent placement which was
complicated by cardiac tamponade likely due to wire perforation of the smaller superior branch of the diagonal branch; patient was transferred emergently to the OR and underwent CABG x 2.
CAD status-post CABG x 2 on 07/01/2024:
-Extubated, clinically stable; mild sinus tachycardia on telemetry.
-Continue supportive care and routine postsurgical management as directed by CT Surgery.
Hypertension:
-Blood pressure stable.
Hyperlipidemia:
-Continue high-dose atorvastatin.
Physical Exam
Vital Signs/Labs
Vital Signs
Temp Pulse Resp BP Pulse Ox
99.8 F 108 26 117/78 99
07/02/24 14:00 07/02/24 14:00 07/02/24 14:00 07/02/24 14:00 07/02/24 13:30
07/01/24 07/02/24 07/03/24
06:59 06:59 06:59
Actual Weight 69.8 kg
07/02/24 04:01
07/02/24 04:01
PT 16.2 Sec (11.4-14.6) H 07/01/24 21:36
INR 1.32 07/01/24 21:36
APTT 32.1 Sec (23.4-35.0) 07/01/24 21:36
Magnesium 1.5 mg/dl (1.6-2.3) L 07/02/24 04:01
Physical Exam
Constitutional: No acute distress and Comfortable
EENT: Anicteric
Cardiovascular: Rhythm & rate is regular (Mildly tachycardic), Pedal edema is absent, Systolic murmur absent and S1S2 is normal
Respiratory: Respiratory effort normal and Lungs clear to auscul.
GI: Soft
Neuro/Psych: AO x 3
Other: Skin (Warm, dry, intact)
Data Reviewed
-
Date of Service: July 02, 2024
EKG: Tracing Personally Visualized and interpreted (Telemetry: Sinus tachycardia)
Critical Care Time (in minutes): 37
--- NOTE | 2024-07-02 15:00 | W.PN.ANS.POP ---
Anesthesia Post Operative
- Anesthesia Post Op Note
Vital Signs Stable-See Nursing Note: Yes
Airway Patent: Yes
Adequate Pain Control: Yes
Change in Mental Status: No
Current Postoperative Nausea & Vomiting: No
Anesthesia Complications: No
General Anesthetic Recall: No
Unplanned Admission: No
Post Op Hydration Adequate: Yes
[2024-07-02] MEDS: ROXICODONE 2.5 MG PO ×2 (15:23→20:14)
[2024-07-02] MEDS: NSS IV (15:45)
[2024-07-02 15:55] LABS: Glycohemoglobin (HgbA1c) 6.4 % (4.0-5.6)
[2024-07-02 16:02] LABS: Glucose - Point of Care 92 mg/dl (70-99)
[2024-07-02] MEDS: FLEXBUMIN 50 IV (16:02)
--- NOTE | 2024-07-02 16:13 | PTCARENOTE ---
VS obtained, assessment stable. Patient resting comfortably oob in chair, perusing menu. Family at bedside for visit.
[2024-07-02 17:15] LABS: Mixed Venous O2 Saturation 59.8 %
[2024-07-02] MEDS: LR 250 IV (17:54)
[2024-07-02 18:04] LABS: Glucose - Point of Care 152 mg/dl (70-99)
[2024-07-02] MEDS: LR 500 IV (19:00)
--- NOTE | 2024-07-02 20:00 | PTCARENOTE ---
assumed care of pt from previous RN. pt A&Ox4, resting in bed at time of assessment. ST on tele-monitor. palpable peripheral pulses. generalized trace edema noted. CTx2 (mediastinal) to -20cm wall suction, no air leaks noted. POX 99% on 2 L NC. abd
s/n, +BS. no c/o nausea. jj catheter draining clear, yellow urine. all surgical sites stable, CDI. R IJ cordis w/ KVO. PIV x2 intact. see worklist for complete nursing assessment, interventions, VS, and I&Os.
[2024-07-02 20:14] LABS: Glucose - Point of Care 146 mg/dl (70-99)
[2024-07-02] MEDS: LIPITOR 80 MG PO (20:14)
[2024-07-02] MEDS: LOPRESSOR 12.5 MG PO (20:14)
[2024-07-02 21:14] LABS: Mixed Venous O2 Saturation 71.2 %
[2024-07-02 22:14] LABS: Glucose - Point of Care 91 mg/dl (70-99)
[2024-07-02 23:59] LABS: Glucose - Point of Care 101 mg/dl (70-99)
[2024-07-03] VITALS (16 sets, daily range): BP systolic 94–145; BP diastolic 56–83; PULSE 88–95; BMI 25.2
[2024-07-03] MEDS: FLEXBUMIN 50 IV ×2 (00:06→08:34)
--- NOTE | 2024-07-03 00:30 | PTCARENOTE ---
assessment remains unchanged. VSS. SR on tele-monitor. POX 99% on [address] PA aware of decreased U/O.
[2024-07-03 02:06] LABS: Glucose - Point of Care 97 mg/dl (70-99)
[2024-07-03 04:12] LABS: Glucose - Point of Care 106 mg/dl (70-99)
[2024-07-03 04:35] LABS: Hematocrit 24.8 % (39.0-52.0); Hemoglobin 8.6 g/dL (13.0-18.0); Mean Corp Hgb Conc. 34.7 g/dL (33.0-37.0); Mean Corpuscular Hgb 30.6 pg (27.0-31.0); Mean Corpuscular Volume 88.3 fL (80.0-94.0); Mean Platelet Volume 10.3 fL (7.4-10.4); Platelet Count 146 10^3/uL (130-400); Red Blood Cell Count 2.81 10^6/uL (4.70-6.10); Red Cell Dist. Width 14.7 % (11.5-14.5); White Blood Cell Count 16.1 10^3/uL (4.8-10.8)
[2024-07-03 04:47] LABS: Blood Urea Nitrogen 22 mg/dl (9-20); Calcium 8.6 mg/dl (8.4-10.2); Carbon Dioxide 28 mmol/L (22-30); Chloride 106 mmol/L (98-107); Estimated Creatinine Clearance 74 ml/min; Glucose 103 mg/dl (70-99); Potassium 4.3 mmol/L (3.5-5.1); Sodium 135 mmol/L (135-145); eGFR > 60.00
[2024-07-03 04:57] LABS: Magnesium 2.1 mg/dl (1.6-2.3)
--- NOTE | 2024-07-03 05:34 | W.PN.CT ---
Today's Communication / Plan
-
S/P CABG: Cont ASA/Plavix/High itensity statin/BB
Chest tubes: M-60/160. Remove today
Wean NC for O2 sats >90%. Should be able to wean off this AM. CXR clear overall.
UOP low overnight. TTE yesterday showed hyperdynamic and underfilled LV (on dobut). Give additional 500cc LR this AM. Consider PO lasix today.
DC Du catheter. Bladder scan protocols.
Maintain cordis 1 more day.
OOB, ambulate, Cardiac rehab.
Anticipate home in 48 hrs
Assessment / Plan
-
Coronary artery disease s/p Off-pump beating heart CABG x 2 [in situ DUTTA to LAD, ao�RSVG�diagonal] on 07/02/[address] Fabián Faulkner, POD #2
Intraop RODY: LVEF is approximately 60% with no RWMA, no valvular abnormalities. Post bypass exam is unchanged.
-Pericardial effusion s/p pericardiocentesis and subsequent intraop drainage
-USA
-Hypertension
-Hyperlipidemia
-Diabetes mellitus type
-Acute postoperative cardiogenic shock requiring dobutamine
-Acute postoperative distributive shock requiring Levophed
-Acute postoperative blood loss anemia requiring 2 units packed red blood cells
-Acute postoperative coagulopathy requiring 2 units platelets, likely secondary to Plavix
-Acute postoperative atelectasis
-Acute postoperative hypovolemia
Subjective
Procedure
Feels good this AM. Still with incisional discomfort.
-
Date of Service: July 03, 2024
Objective Data
-
Lab Results
07/03/24 04:17
07/03/24 04:17
PT 16.2 Sec (11.4-14.6) H 07/01/24 21:36
INR 1.32 07/01/24 21:36
APTT 32.1 Sec (23.4-35.0) 07/01/24 21:36
Vital Signs
Vital Signs
Temp Pulse Resp BP Pulse Ox
97.8 F 84 18 104/68 98
07/03/24 05:00 07/03/24 05:00 07/03/24 05:00 07/03/24 05:00 07/03/24 05:00
CT Intake/Output/Weight
07/02/24 07/02/24 07/03/24
06:59 18:59 06:59
Intake Total 1392.0 / 2028.2 722.7 / 939.1 216.4 / 939.1
Output Total 985 / 1535 700 / 940 240 / 940
Balance 407.0 / 493.2 22.7 / -0.9 -23.6 / -0.9
SaO2: 98
Physical Exam
-
General: AOx3
Cardiovascular: Regular rate & rhythm
Respiratory: Clear and Equal
Sternum: Stable
Incision: Clean, Dry and Intact
Extremities: Edema +1
Data Reviewed
-
Lab Results: Results Reviewed
Medications: Active Meds Reviewed
Chest X-Ray: Image Reviewed
[2024-07-03] MEDS: FLEXERIL 5 MG PO (05:48)
[2024-07-03] MEDS: LR 500 IV (05:48)
[2024-07-03] MEDS: TYLENOL 1000 MG PO ×3 (05:48→20:39)
[2024-07-03 05:55] LABS: Glucose - Point of Care 93 mg/dl (70-99)
[2024-07-03 07:28] LABS: Glucose - Point of Care 124 mg/dl (70-99)
[2024-07-03] MEDS: NEURONTIN 100 MG PO ×3 (07:48→20:39)
[2024-07-03] MEDS: TORADOL 15 MG IV ×2 (07:48→15:33)
--- NOTE | 2024-07-03 08:00 | PTCARENOTE ---
Patient received from night coordinator resting oob in chair, AAO X 3, c/o moderate sternal pain, medicated for such (see MAR). NSR via cm, SaO2 @ 95% on RA. Mediastinal chest tubes x 2 (Y-connected to one pleurevac), to -20cm suction w/no air leak noted.
Du d/c'd earlier this am, DTV, denies urge. Insulin infusing, titrating per glycemic protocol. All procedural sites stable. Patient updated to plan of care for the day, in agreement. See work list for full assessment and interventions performed.
[2024-07-03] MEDS: LIDOCAINE 4% PATCH 1 PATCH TOPICAL (08:34)
[2024-07-03] MEDS: BACTROBAN 2% OINTMENT 1 APPLIC NASAL ×2 (08:34→19:54)
[2024-07-03] MEDS: MAGNESIUM OXIDE 500 MG PO ×2 (08:35→19:55)
[2024-07-03] MEDS: PROTONIX 40 MG PO (08:35)
[2024-07-03] MEDS: LOPRESSOR 12.5 MG PO (08:35)
[2024-07-03] MEDS: SENOKOT-S 1 TABLET PO ×2 (08:35→19:55)
[2024-07-03] MEDS: PROSCAR 5 MG PO (08:35)
[2024-07-03] MEDS: PACERONE 200 MG PO ×3 (08:36→20:39)
[2024-07-03] MEDS: LOW STRENGTH ASPIRIN 81 MG PO (08:36)
[2024-07-03] MEDS: GLUCOPHAGE 500 MG PO ×2 (08:36→17:54)
[2024-07-03] MEDS: PLAVIX 75 MG PO (08:36)
[2024-07-03 09:27] LABS: Glucose - Point of Care 211 mg/dl (70-99)
--- NOTE | 2024-07-03 11:29 | W.PN.INTV ---
Today's Communication / Plan
Recommendations
Up OOB as tolerated
Encourage incentive spirometer use 10x/hr for at least 4 hrs a day
Off dobutamine drip and insulin drip
Maintain BG >140 + <180
Cardiac rehab consult
Patient downgraded to CVICU�telemetry status. Principal Biostatistician/Pulmonary service will now sign off. Please reconsult if there are any additional questions/concerns, or if patient's respiratory status deteriorates.
Assessment
-
Assessment: 73-year-old male with a past medical history of CAD s/p CAMILLA x 2 (mid LAD + diagonal branch), GERD, hypertension and DM type II who presented with recurrent angina X 5 weeks and underwent left heart catheterization today. Patient
recently in the ER here at [facility] on 06/09/2024 with chest pain, described as pressure-like. He had a left heart catheterization 2 weeks prior to that and was taking Plavix and aspirin since that time. He was seen by cardiology in the
ER at that time, however troponins were negative x 2 with unremarkable EKG, and CP was thought to be non-anginal and due to GERD. Patient normally sees collar trimmer of [place] with Dr. Garcia, and was referred here to [facility] for left heart catheterization which he obtained today. LHC today showed widely patent mid LAD stent without restenosis, and an 80-90% ostial stenosis in the first diagonal branch. PCI was attempted of the large diagonal branch with
balloon angioplasty and stent placement which was complicated by sluggish antegrade flow and cardiac tamponade likely due to wire perforation of the smaller superior branch of the diagonal branch and he was transferred emergently to the OR for CABG
x 2. Patient then transferred to CVICU postoperatively and critical care services consulted for additional management/recommendations.
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
Impression:
#PCI of large diagonal branch due to 80-90% ostial stenosis c/b cardiac tamponade + sluggish anterograde flow s/p CABG x2 (POD#2)
#Recurrent angina with history of CAD s/p PCI with CAMILLA x2 to mid LAD + diagonal branch
#Anemia
#Metabolic + respiratory acidosis
Plan:
Patient successfully extubated on 07/01 and is breathing comfortably now on room air with SpO2 98%
Maintain SpO2 >90-94%
prn nebulized bronchodilators
Encourage incentive spirometer use 10x/hr for at least 4 hrs a day
Removal of right IJ cordis per CT surgery
Maintain MAP>65
Replete electrolytes with K>4, Mg>2
Monitor chest tube output (mediastinal chest tubes x 2)
Monitor hemoglobin
Monitor platelet count and coags
Transfuse blood product if needed to keep Hb>7-8g/dL and plt>50k (given post-operative status)
CT surgery managing chest tubes
Monitor blood sugar with goal BG 140-180
Insulin SQ as needed to maintain BG goal as above
Aspiration precautions
DVT prophylaxis
Early nutrition
Early mobilization
Patient downgraded to CVICU�telemetry status. Principal Biostatistician/Pulmonary service will now sign off. Thank you for allowing us to be involved in the care of this patient. Please reconsult if there are any additional questions/concerns, or if patient's
respiratory status deteriorates.
Total time spent today was 55 minutes for this encounter. Time includes reviewing laboratory test/imaging results, reviewing pertinent medical records, obtaining and reviewing medical history, performing an appropriate exam, ordering medications,
tests and procedures. Time also includes documentation of this encounter, coordinating patient care and communicating with other healthcare professionals. Total time does not include separately billed tests performed on this date of service.
Data:
CXR 07/02/2024:
Interval extubation. The additional support lines and tubes are stable in appearance.
Left basilar atelectasis, similar to prior.
CXR 07/03/2024:
Interval removal of the left-sided chest tube. No visible pneumothorax.
Additional support lines and tubes are stable in appearance.
Unchanged left basilar atelectasis.
Subjective Dataa
Subjective Data
Date of Service:
Date of Service: July 03, 2024
Chief Complaint: Principal Biostatistician Follow Up
Subjective:
Seen and evaluated today at bedside. Multiple family members at bedside and all questions were answered. Patient is saturating 98% on room air, heart rate 98 and BP 116/81. Patient still has sternal chest pain from operation, but pain is not
worsening. Also has CP with coughing. Denies shortness of breath, abdominal pain, fevers or chills.
Review of Systems
General: Other (Negative unless mentioned above)
Objective Data
Data Reviewed
Vital Signs / I&O / Oxygen:
Vital Signs
Temp Pulse Resp BP Pulse Ox
98.7 F 86 19 104/64 95
07/03/24 08:00 07/03/24 10:00 07/03/24 10:00 07/03/24 09:00 07/03/24 08:20
Intake and Output
07/02/24 07/03/24 07/04/24
06:59 06:59 06:59
Intake Total 1991.5 / 2027.2 949.5 / 949.5 261.2 / 261.2
Output Total 1500 / 1535 955 / 955
Balance 492.5 / 493.2 -5.5 / -5.5 261.2 / 261.2
SaO2 [CPAP] 100
SaO2 [A/C] 100
SaO2 [SIMV] 100
SaO2 95
Nasal Cannula flow liters per 2
minute
Physical Exam
General: Respiratory Distress (Negative) and Comfortable
HEENT: Normocephalic and Anicteric
Cardiovascular: S1-S2, Peripheral Edema (Negative) and Other (Tachycardic)
Respiratory: Wheeze (Negative), Crackles (Right anterior hemithorax), Rhonchi (Negative), Non-Labored Respirations and Chest Tube (Mediastinal chest tubes x 2)
GI: Soft, Non Distended, Non Tender and Normal Bowel Sounds
Neurology: Awake, Alert and Tremors (Negative)
Skin: Warm, Dry and Jaundice (Negative)
Labs/Micro/Reports
Lab Data
07/03/24 04:17
--- NOTE | 2024-07-03 11:36 | W.PN.CD ---
Today's Communication / Plan
-
-Remains clinically stable; remains in sinus rhythm on telemetry.
-Continue routine postsurgical management as directed by CT Surgery.
Impression / Plan
-
73-year-old male (known to Dr. Janay Cagle, his primary Recreational Resort Manager) with coronary artery disease status-post CAMILLA to LAD and D1 (on 05/27/2024), hypertension, and hyperlipidemia who presented for elective cardiac catheterization on 07/01/2024.
Cardiac catheterization revealed widely patent mid LAD stent without restenosis, and an 80-90% ostial stenosis in the first diagonal branch. PCI was attempted of the large diagonal branch with balloon angioplasty and stent placement which was
complicated by cardiac tamponade likely due to wire perforation of the smaller superior branch of the diagonal branch; patient was transferred emergently to the OR and underwent CABG x 2.
CAD status-post CABG x 2 on 07/01/2024:
-Remains clinically stable; remains in sinus rhythm on telemetry.
-Continue routine postsurgical management as directed by CT Surgery.
Hypertension:
-Blood pressure remains stable.
Hyperlipidemia:
-Continue high-dose atorvastatin.
Physical Exam
Vital Signs/Labs
Vital Signs
Temp Pulse Resp BP Pulse Ox
98.7 F 86 19 104/64 95
07/03/24 08:00 07/03/24 10:00 07/03/24 10:00 07/03/24 09:00 07/03/24 08:20
07/02/24 07/03/24 07/04/24
06:59 06:59 06:59
Actual Weight 69.8 kg 70.8 kg
07/03/24 04:17
PT 16.2 Sec (11.4-14.6) H 07/01/24 21:36
INR 1.32 07/01/24 21:36
APTT 32.1 Sec (23.4-35.0) 07/01/24 21:36
Magnesium 2.1 mg/dl (1.6-2.3) 07/03/24 04:17
Physical Exam
Constitutional: No acute distress and Comfortable
EENT: Anicteric and Moist mucous membranes
Cardiovascular: Rhythm & rate is regular, Pedal edema is absent, Systolic murmur absent and S1S2 is normal
Respiratory: Respiratory effort normal and Lungs clear to auscul.
GI: Soft
Neuro/Psych: AO x 3
Other: Skin (Warm, dry, intact)
Data Reviewed
-
Date of Service: July 03, 2024
EKG: Tracing Personally Visualized and interpreted (Telemetry: Sinus rhythm)
Medical Tests (PFT, Pathology etc): Discussed with Physician (CT Surgery team) and Discussed with Nurse
Labs: Labs Reviewed by me
Critical Care Time (in minutes): 36
--- NOTE | 2024-07-03 12:02 | PTCARENOTE ---
VS obtained, assessment stable. Patient resting comfortably, family at bedside.
[2024-07-03 12:04] LABS: Hematocrit 23.6 % (39.0-52.0); Hemoglobin 8.4 g/dL (13.0-18.0)
[2024-07-03 13:09] LABS: Glucose - Point of Care 167 mg/dl (70-99)
[2024-07-03] MEDS: VITAMIN C 500 MG PO (13:46)
[2024-07-03] MEDS: FERRLECIT 110 MG IV (13:47)
[2024-07-03] MEDS: NSS 500 IV (13:47)
[2024-07-03] MEDS: NOVOLOG FLEXPEN-MODERATE RESISTANCE 1 UNITS SC (13:47)
[2024-07-03] MEDS: ANESTHETIC LOZENGE 1 LOZENGE PO (15:33)
--- NOTE | 2024-07-03 16:13 | PTCARENOTE ---
VS obtained, assessment unchanged. Patient remains oob in chair resting.
[2024-07-03 17:49] LABS: Glucose - Point of Care 278 mg/dl (70-99)
[2024-07-03] MEDS: NOVOLOG FLEXPEN-MODERATE RESISTANCE 5 UNITS SC (17:54)
[2024-07-03] MEDS: LIPITOR 80 MG PO (19:54)
[2024-07-03] MEDS: MUCINEX 600 MG PO (19:55)
[2024-07-03] MEDS: LOPRESSOR 25 MG PO (19:55)
--- NOTE | 2024-07-03 20:00 | PTCARENOTE ---
assumed care of pt from previous RN. pt A&Ox4, resting in chair at time of assessment. SR/ST on tele-monitor. palpable peripheral pulses. POX 96% on RA. abd s/n, +BS. pt voiding clear, marcella urine in urinal. all surgical sites stable, CDI. R IJ
cordis w/ KVO. PIV x2 intact. see worklist for complete nursing assessment, interventions, VS, and I&Os.
[2024-07-03 21:24] LABS: Glucose - Point of Care 270 mg/dl (70-99)
[2024-07-04] VITALS (25 sets, daily range): BP systolic 95–156; BP diastolic 65–100; PULSE 97; O2SAT 95–98; BMI 26.1
--- NOTE | 2024-07-04 | PTCARENOTE ---
assessment remains unchanged. VSS.
[2024-07-04 04:17] LABS: Hematocrit 23.2 % (39.0-52.0); Hemoglobin 7.8 g/dL (13.0-18.0); Mean Corp Hgb Conc. 33.6 g/dL (33.0-37.0); Mean Corpuscular Hgb 30.2 pg (27.0-31.0); Mean Corpuscular Volume 89.9 fL (80.0-94.0); Mean Platelet Volume 10.7 fL (7.4-10.4); Platelet Count 154 10^3/uL (130-400); Red Blood Cell Count 2.58 10^6/uL (4.70-6.10); Red Cell Dist. Width 14.2 % (11.5-14.5)
[2024-07-04 04:42] LABS: Blood Urea Nitrogen 28 mg/dl (9-20); Calcium 8.6 mg/dl (8.4-10.2); Carbon Dioxide 26 mmol/L (22-30); Chloride 102 mmol/L (98-107); Estimated Creatinine Clearance 66 ml/min; Glucose 157 mg/dl (70-99); Magnesium 2.2 mg/dl (1.6-2.3); Potassium 4.5 mmol/L (3.5-5.1); Sodium 131 mmol/L (135-145); eGFR > 60.00
--- NOTE | 2024-07-04 05:08 | W.PN.CT ---
Today's Communication / Plan
-
-pod #3
-no issues overnight
-weaned off O2 - pOx 98% on RA
-monitor BP (90s-low 100s)
-Na 131 today (135 on 07/03)
-current meds (ASA, Plavix, Lopressor 25 bid, Amio, Lipitor, Protonix)
-encourage IS, Mucinex started, ambulate
Assessment / Plan
-
-Coronary artery disease- s/p emergent Off-pump beating heart CABG x 2 [in situ DUTTA to LAD, ao�RSVG�diagonal] on 07/01/[address] Fabián Faulkner, POD #3
-Intraop RODY: LVEF is approximately 60% with no RWMA, no valvular abnormalities. Post bypass exam is unchanged.
-Pericardial effusion s/p pericardiocentesis and subsequent intraop drainage
-USA
-Hypertension
-Hyperlipidemia
-Diabetes mellitus type
-Acute postoperative cardiogenic shock requiring dobutamine
-Acute postoperative distributive shock requiring Levophed
-Acute postoperative blood loss anemia requiring 2 units packed red blood cells
-Acute postoperative coagulopathy requiring 2 units platelets, likely secondary to Plavix
-Acute postoperative atelectasis
-Acute postoperative hypovolemia
-Acute postop hyponatremia
Discussed patient care with: Nursing and Care Team
Subjective
-
Date of Service:
Objective Data
-
PT 16.2 Sec (11.4-14.6) H 07/01/24 21:36
INR 1.32 07/01/24 21:36
APTT 32.1 Sec (23.4-35.0) 07/01/24 21:36
Vital Signs
Vital Signs
Temp Pulse Resp BP Pulse Ox
98.0 F 83 18 97/66 98
07/04/24 00:00 07/04/24 00:14 07/04/24 00:00 07/04/24 00:14 07/04/24 00:14
CT Intake/Output/Weight
07/03/24 07/03/24 07/04/24
06:59 18:59 06:59
Intake Total 226.8 / 949.5 861.2 / 921.2 60 / 921.2
Output Total 255 / 955 275 / 675 400 / 675
Balance -28.2 / -5.5 586.2 / 246.2 -340 / 246.2
SaO2: 98
Physical Exam
-
General: Awake and AOx3
Cardiovascular: Regular rate & rhythm, No Murmurs and Rub
Respiratory: Decreased Breath Sounds
Sternum: Stable
Incision: Clean, Dry and Dressing Intact
Extremities: Other (trace edema b/l. DP 2 b/l)
Data Reviewed
-
Lab Results: Results Reviewed
Medications: Active Meds Reviewed
Chest X-Ray: Report Reviewed and Image Reviewed
ECG: Report Reviewed and Image Reviewed
[2024-07-04] MEDS: TYLENOL 1000 MG PO ×3 (05:58→20:51)
--- NOTE | 2024-07-04 07:37 | W.PN.CD ---
Today's Communication / Plan
-
Reviewed events on 07-01 with pt and at bedside
Continue current Rx
Updated Dr Garcia
Impression / Plan
-
73-year-old male (known to Dr. Janay Cagle, his primary Kennel Keeper) with coronary artery disease status-post CAMILLA to LAD and D1 (on 05/27/2024), hypertension, and hyperlipidemia who presented for elective cardiac catheterization on 07/01/2024.
Cardiac catheterization revealed widely patent mid LAD stent without restenosis, and an 80-90% ostial stenosis in the first diagonal branch. PCI was attempted of the large diagonal branch with balloon angioplasty and stent placement which was
complicated by cardiac tamponade likely due to wire perforation of the smaller superior branch of the diagonal branch; patient was transferred emergently to the OR and underwent CABG x 2.
CAD status-post CABG x 2 on 07/01/2024:
-Doing remarkably well. ECG without injury. ECHO POD#1 showed no WMA with EF 60-65%
- Continue DAPT
Tamponade
-Secondary to distal wire perforation D1 branch
-Drained in dock or pier laborer and pericardium dry in OR
-ECHO POD#1 no effusion
Hypertension:
-Blood pressure remains stable.
Hyperlipidemia:
-Continue high-dose atorvastatin.
Anemia
- Receiving PRBC
Physical Exam
Vital Signs/Labs
Vital Signs
Temp Pulse Resp BP Pulse Ox
97.9 F 77 20 102/71 96
07/04/24 07:04 07/04/24 07:04 07/04/24 07:04 07/04/24 07:04 07/04/24 06:45
07/03/24 07/04/24 07/05/24
06:59 06:59 06:59
Actual Weight 156 lb 1.396 oz
07/04/24 03:49
07/04/24 03:49
PT 16.2 Sec (11.4-14.6) H 07/01/24 21:36
INR 1.32 07/01/24 21:36
APTT 32.1 Sec (23.4-35.0) 07/01/24 21:36
Magnesium 2.2 mg/dl (1.6-2.3) 07/04/24 03:49
Physical Exam
Constitutional: No acute distress and Comfortable
Cardiovascular: Rhythm & rate is regular, S1S2 is normal and Murmur/rub/gallop absent
Respiratory: Respiratory effort normal, Lungs clear to auscul. and Wheeze Absent
GI: Soft and Non tender
Neuro/Psych: AO x 3 and Motor deficits absent
Data Reviewed
-
Date of Service: July 04, 2024
[2024-07-04 08:52] LABS: Glucose - Point of Care 179 mg/dl (70-99)
[2024-07-04] MEDS: NOVOLOG FLEXPEN-MODERATE RESISTANCE 1 UNITS SC ×3 (08:53→17:59)
--- NOTE | 2024-07-04 09:01 | PTCARENOTE ---
received pt from shift commander nurse with blood transfusion. tranfusion completed as ordered, pt tolerated pt resting in chair. Pt is AAOx4, VSS, sinus rhythm on tele, palpable peripheral pulses, POX 97%, pt voiding marcella color urine, surgical sites
intact, R IJ Cordis w/ KVO. PIV x2 intact.
[2024-07-04] MEDS: PROTONIX 40 MG PO (09:28)
[2024-07-04] MEDS: MUCINEX 600 MG PO ×2 (09:28→19:39)
[2024-07-04] MEDS: LOPRESSOR 25 MG PO ×2 (09:28→19:39)
[2024-07-04] MEDS: VITAMIN C 500 MG PO (09:28)
[2024-07-04] MEDS: PLAVIX 75 MG PO (09:28)
[2024-07-04] MEDS: MAGNESIUM OXIDE 500 MG PO ×2 (09:28→19:39)
[2024-07-04] MEDS: SENOKOT-S 1 TABLET PO (09:28)
[2024-07-04] MEDS: GLUCOPHAGE 500 MG PO ×2 (09:29→18:06)
[2024-07-04] MEDS: LOW STRENGTH ASPIRIN 81 MG PO (09:29)
[2024-07-04] MEDS: PROSCAR 5 MG PO (09:29)
[2024-07-04] MEDS: PACERONE 200 MG PO ×3 (09:29→20:52)
[2024-07-04] MEDS: NEURONTIN 100 MG PO ×3 (09:29→20:52)
[2024-07-04] MEDS: LIDOCAINE 4% PATCH 1 PATCH TOPICAL (09:30)
[2024-07-04] MEDS: LASIX 40 MG IV ×2 (09:30→14:05)
[2024-07-04] MEDS: BACTROBAN 2% OINTMENT 1 APPLIC NASAL ×2 (09:30→19:40)
--- NOTE | 2024-07-04 11:52 | PTCARENOTE ---
VSS, sinus rhythm maintained, pt tolerated cardiac rehab
--- NOTE | 2024-07-04 11:56 | CM ---
Chart reviewed. Patient OOB sitting in the chair, independent of ADLS, lives with her in a 2 ST, 1 ROSA M, 0 DME. Plan is for the patient to return home with CT Transitional RN. CM to follow
[2024-07-04 12:06] LABS: Glucose - Point of Care 158 mg/dl (70-99)
[2024-07-04] MEDS: FERRLECIT 110 MG IV (14:03)
--- NOTE | 2024-07-04 16:13 | PTCARENOTE ---
VSS, normal sinus rhythm maintained, pt voiding clear urine, pt tolerating OOB to chair
[2024-07-04] MEDS: NSS IV (17:27)
[2024-07-04 17:33] LABS: Glucose - Point of Care 155 mg/dl (70-99)
[2024-07-04] MEDS: LIPITOR 80 MG PO (19:40)
[2024-07-04] MEDS: ANESTHETIC LOZENGE 1 LOZENGE PO (19:40)
[2024-07-04] MEDS: SENOKOT-S PO (19:42)
--- NOTE | 2024-07-04 20:00 | PTCARENOTE ---
Assumed care of patient at 1900. Patient found in chair at time of assessment with family at bedside. Patient is aox4, follows commands appropriately, moves all extremities. Lung sounds are diminished at the bases, patient has saO2 of 98% on RA.
Heart sounds have a regular rate and rhythm, patient is SR on the monitor. Patient has weak but palpable dorsalis pedis pulses and normal palpable readial pulses. Patient has trace generalized anasarca, +1 ankle edema, and +1 pedal edema. Patient
has soft nontender abdomen with active BS throughout all four quadrants. Patient is voiding using the urinal. Patient has sternal incision approx with surg adhesive BETO, R radial puncture with 4x4 dressing CDI, R groin puncture with 4x4 gauze
dressing CDI, and R knee incision approx with surg adhesive WORKFORCE PLANNING ANALYST. Patient has R IJ cordis receiving KVO, R AC 16G and L AC 22G PIV. VSS. Patient ambulatory with standby assist.
[2024-07-04 21:04] LABS: Glucose - Point of Care 170 mg/dl (70-99)
[2024-07-05] VITALS (8 sets, daily range): BP systolic 103–127; BP diastolic 58–82; PULSE 90; O2SAT 95–96; BMI 25.4
--- NOTE | 2024-07-05 | PTCARENOTE ---
Patient reassessed. VSS. Remains SR on the monitor. Patient has no complaints at this time.
--- NOTE | 2024-07-05 04:00 | PTCARENOTE ---
Patient reassessed. VSS. AM labs obtained. Remains SR on the monitor. Assisted patient oob to chair.
[2024-07-05 04:13] LABS: Hematocrit 26.4 % (39.0-52.0); Hemoglobin 9.1 g/dL (13.0-18.0); Mean Corp Hgb Conc. 34.5 g/dL (33.0-37.0); Mean Corpuscular Hgb 30.3 pg (27.0-31.0); Mean Platelet Volume 10.7 fL (7.4-10.4); Platelet Count 173 10^3/uL (130-400); Red Cell Dist. Width 14.1 % (11.5-14.5); White Blood Cell Count 10.1 10^3/uL (4.8-10.8)
[2024-07-05 04:37] LABS: Blood Urea Nitrogen 29 mg/dl (9-20); Calcium 8.6 mg/dl (8.4-10.2); Carbon Dioxide 30 mmol/L (22-30); Chloride 102 mmol/L (98-107); Estimated Creatinine Clearance 74 ml/min; Glucose 133 mg/dl (70-99); Magnesium 2.1 mg/dl (1.6-2.3); Potassium 4.1 mmol/L (3.5-5.1); Sodium 135 mmol/L (135-145); eGFR > 60.00
--- NOTE | 2024-07-05 05:22 | W.PN.CT ---
Today's Communication / Plan
-
-pod #4
-no issues overnight
-s/p 1 pRBC on 07/04 followed with bid Lasix (diuresed 2074+cc)
-weaned off O2 - pOx 98% on RA
-no further hypotension
-Na 135 today (131 on 07/04,135 on 07/03)
-current meds (ASA, Plavix, Lopressor 25 bid, Amio, Lipitor, Protonix, Metformin)
-encourage IS, Mucinex started, ambulate
-possible d/c soon
Assessment / Plan
-
-Coronary artery disease- s/p emergent Off-pump beating heart CABG x 2 [in situ DUTTA to LAD, ao�RSVG�diagonal] on 07/01/[address] Fabián Faulkner, POD #4
-Intraop RODY: LVEF is approximately 60% with no RWMA, no valvular abnormalities. Post bypass exam is unchanged.
-Pericardial effusion s/p pericardiocentesis and subsequent intraop drainage
-USA
-Hypertension
-Hyperlipidemia
-Diabetes mellitus type
-Acute postoperative cardiogenic shock requiring dobutamine
-Acute postoperative distributive shock requiring Levophed
-Acute postoperative blood loss anemia requiring 2 units packed red blood cells
-Acute postoperative coagulopathy requiring 2 units platelets, likely secondary to Plavix
-Acute postoperative atelectasis
-Acute postoperative hypovolemia
-Acute postop hyponatremia
Discussed patient care with: Nursing and Care Team
Subjective
Procedure
Feels good this AM. Still with incisional discomfort.
-
Date of Service: July 05, 2024
Objective Data
-
PT 16.2 Sec (11.4-14.6) H 07/01/24 21:36
INR 1.32 07/01/24 21:36
APTT 32.1 Sec (23.4-35.0) 07/01/24 21:36
Vital Signs
Vital Signs
Temp Pulse Resp BP Pulse Ox
98.3 F 85 20 123/68 98
07/04/24 19:00 07/04/24 19:39 07/04/24 19:00 07/04/24 19:39 07/04/24 20:10
CT Intake/Output/Weight
07/04/24 07/04/24 07/05/24
06:59 18:59 06:59
Intake Total 100 / 961.2 740 / 770 30 / 770
Output Total 400 / 675 2075 / 2775 700 / 2775
Balance -300 / 286.2 -1335 / -2004 - /
SaO2: 98
Physical Exam
-
General: Awake and AOx3
Cardiovascular: Regular rate & rhythm, No Murmurs and Rub
Respiratory: Decreased Breath Sounds
Sternum: Stable
Incision: Clean, Dry and Intact
Extremities: Edema +1
Data Reviewed
-
Lab Results: Results Reviewed
Medications: Active Meds Reviewed
Chest X-Ray: Report Reviewed and Image Reviewed
ECG: Report Reviewed and Image Reviewed
[2024-07-05] MEDS: TYLENOL 1000 MG PO (05:59)
--- NOTE | 2024-07-05 07:00 | PTCARENOTE ---
Bedside walking rounds report received. Patient awake alert and oriented x 3. Plan : assisted patient back to bed and right IJ cordis dc mid morning. Ambulating. Room air. NSR to ST with pac's when ambulating. Plan to maryam 2 view cxr and dc home
hts afternoon after shower.
[2024-07-05] MEDS: NOVOLOG FLEXPEN-MODERATE RESISTANCE 1 UNITS SC (07:59)
[2024-07-05 08:05] LABS: Glucose - Point of Care 157 mg/dl (70-99)
[2024-07-05] MEDS: LASIX 40 MG IV (08:29)
[2024-07-05] MEDS: MUCINEX 600 MG PO (08:30)
[2024-07-05] MEDS: GLUCOPHAGE 500 MG PO (08:30)
[2024-07-05] MEDS: PROSCAR 5 MG PO (08:30)
[2024-07-05] MEDS: PROTONIX 40 MG PO (08:30)
[2024-07-05] MEDS: NEURONTIN 100 MG PO (08:30)
[2024-07-05] MEDS: PLAVIX 75 MG PO (08:30)
[2024-07-05] MEDS: LIDOCAINE 4% PATCH 1 PATCH TOPICAL (08:31)
[2024-07-05] MEDS: PACERONE 200 MG PO (08:31)
[2024-07-05] MEDS: LOW STRENGTH ASPIRIN 81 MG PO (08:31)
[2024-07-05] MEDS: MAGNESIUM OXIDE 500 MG PO (08:31)
[2024-07-05] MEDS: LOPRESSOR 25 MG PO (08:31)
[2024-07-05] MEDS: VITAMIN C 500 MG PO (08:31)
[2024-07-05] MEDS: BACTROBAN 2% OINTMENT 1 APPLIC NASAL (08:32)
[2024-07-05] MEDS: SENOKOT-S PO (08:40)
--- NOTE | 2024-07-05 08:56 | W.PN.CD ---
Today's Communication / Plan
-
Increase activity
Possible d/c in next 24-48 hrs
Impression / Plan
-
73-year-old male (known to Dr. Janay Cagle, his primary Rotary Driller) with coronary artery disease status-post CAMILLA to LAD and D1 (on 05/27/2024), hypertension, and hyperlipidemia who presented for elective cardiac catheterization on 07/01/2024.
Cardiac catheterization revealed widely patent mid LAD stent without restenosis, and an 80-90% ostial stenosis in the first diagonal branch. PCI was attempted of the large diagonal branch with balloon angioplasty and stent placement which was
complicated by cardiac tamponade likely due to wire perforation of the smaller superior branch of the diagonal branch; patient was transferred emergently to the OR and underwent CABG x 2.
CAD status-post CABG x 2 on 07/01/2024:
-Continues to improve
-ECG without injury.
-ECHO POD#1 showed no WMA with EF 60-65%
- Continue DAPT
Tamponade
-Secondary to distal wire perforation D1 branch
-Drained in company laborer and pericardium dry in OR
-ECHO POD#1 no effusion
Hypertension:
-Blood pressure remains stable.
Hyperlipidemia:
-Continue high-dose atorvastatin.
Anemia
- Received PRBC with increase in Hct to 9.1
Physical Exam
Vital Signs/Labs
Vital Signs
Temp Pulse Resp BP Pulse Ox
98.7 F 74 18 116/73 97
07/05/24 07:57 07/05/24 07:57 07/05/24 07:57 07/05/24 07:57 07/05/24 07:57
07/04/24 07/05/24 07/06/24
06:59 06:59 06:59
Actual Weight 157 lb 3.033 oz
07/05/24 03:56
07/05/24 03:56
PT 16.2 Sec (11.4-14.6) H 07/01/24 21:36
INR 1.32 07/01/24 21:36
APTT 32.1 Sec (23.4-35.0) 07/01/24 21:36
Magnesium 2.1 mg/dl (1.6-2.3) 07/05/24 03:56
Physical Exam
Constitutional: No acute distress
EENT: Anicteric
Cardiovascular: Rhythm & rate is regular, S1S2 is normal and Murmur/rub/gallop absent
Respiratory: Respiratory effort normal, Lungs clear to auscul., Wheeze Absent and Crackles Absent
GI: Soft and Non tender
Neuro/Psych: AO x 3 and Motor deficits absent
Data Reviewed
-
Date of Service: July 05, 2024
--- NOTE | 2024-07-05 08:58 | W.DCSUMMARY ---
Addendum entered and electronically signed by VAISHNAVI Hartley 07/05/24 15:17:
PCP: Donald Hope
Original Note:
Discharge Summary
Discharge Data
Date of Admission: 07/01/24
Date of Discharge: 07/05/24
-
Pending Results: No
Hospital Course
Primary care physician: Yair Hope
Outpatient continuous conveyor screen drier: Richard Cottrell
Inpatient consultants: [facility] Cardiology
Procedures:
1. Unsuccessful percutaneous intervention to Large Diagonal Vessel
2. pericardiocentesis
3. Coronary artery bypass grafting and removal of pericardial drain
Primary Diagnosis:
1. Coronary artery disease with history of drug eluding stent to LAD & Diag, unstable angina and intra pericardial bleeding/effusion
Secondary Diagnoses:
1. Pericardial effusion
2. Hypertension
3. Hyperlipidemia
4. DM type II (A1C 6.4)
5. GERD
6. BPH
7. Acute surgical blood loss anemia
8. Acute postoperative cardiogenic shock
9. Postoperative weight gain/hypervolemia
HPI: 73-year-old male followed by Dr. Omer Cagle, for a past medical history of CAD s/p recent drug-eluting stent to LAD and D1 on 05/19/2024 (On Plavix), HTN, HLD, and GERD presented to [facility] on 07/01 for an elective heart cath.
Hospital course: During the left heart cath, patient continued have chest pain and angiography showed shutdown of the diagonal branch. CT surgery was consulted during this event and angioplasty was attempted, however, patient's blood pressure
continued to decline into the 80s and patient was started on phenylephrine. An urgent echo was requested and flow in the diagonal was compromised. Angiography subsequently showed a saturation from the upper diagonal branch into the pericardial
space, therefore, a emergent pericardiocentesis was performed. Patient became hypotensive and anesthesia was called to intubate the patient. In the Counseling Services Director they were unable to restore normal flow to the diagonal branch and the decision was made
to proceed to the operating room. Last dose of Plavix was the morning of 07/01. Patient underwent emergent off-pump beating heart CABG x 2 (DUTTA to LAD, RSVG�diagonal) and removal of pericardial drain Dr. Fabián Faulkner. Patient received 2 units of
packed red blood cells and 1 pooled platelets intraoperatively. No temporary wires were placed. The patient returned to CVICU on Levophed, Precedex, and insulin. The right femoral sheath was removed and right IJ cordis placed. Aspirin and Plavix
were initiated. Due to labile blood pressure and mixed venous saturation of 45%, dobutamine was initiated the evening of postoperative day #1. Repeat echocardiogram reported normal LV function. Dobutamine was weaned off later that evening, Lasix
given, and right radial sheath/chest drains removed. On postoperative day #3, the Du was removed and patient voided without difficulty. Patient received 1 PRBC for hemoglobin of 7.8, followed by Lasix 40 mg IV x 2 and had excellent diuresis
with over 2 L of urine output. On postoperative day #4, the hemoglobin increased to 9.1 and patient diuresis and additional 40 mg of Lasix. Patient will transition to his home dose of hydrochlorothiazide 12.5 mg daily on discharge. The patient
had no postoperative episodes of atrial fibrillation, therefore the amiodarone was discontinued on discharge. Patient ambulated with cardiac rehab and showered without incident. Patient is stable for discharge to home.
Home medication changes:
Stop:
Imdur
Pepcid
Losartan as BP controlled
Change:
Metoprolol XL 25mg increased to 50mg daily
Discharge Plan
-
Patient Disposition: Home (Routine Discharge)
Discharge Diagnosis/Procedures: CAD/CABG
Condition: Good
Diet: Low Cholesterol, Low Sodium and Diabetic, Carb Controlled
Activity: No strenuous activity
Driving Restrictions: Not until seen by your Dr
Bathing Restrictions: OK to Shower
Other Services: Cardiac Rehab
Specialty Instructions: Weigh Daily- Call MD for wt gain/loss 3 lbs overnight/5 lbs in 1 week
Referrals:
CT Transitional Care Nurse [Outside] - in one to two days
(
The Cardiothoracic Transitional Care Nurse will call you to set up a visit in 1-2 days.)
[facility]. Cardiac Rehab [Outside] - 08/08/24 8:30 am
(Cardiac Rehab Orientation appointment is on 08/08/24 at 8:30 AM
The Cardiac Rehab gym is located on the first floor of the [facility].)
Yair Hope MD [Family Provider] - in four to six weeks (Please make an appointment in four to six weeks. )
Omer Garcia DO [Non-Admitting Privileges] - 08/18/24 2:20 pm (Your Appointment on June has been cancelled. )
Fabián Faulkner MD [Active] - 08/04/24 1:45 pm
Prescriptions:
New
metoprolol succinate [Toprol XL] 50 mg tablet extended release 24 hr
50 mg PO DAILY Qty: 30 1RF
oxycodone 5 mg Tablet
5 mg PO Q6HPRN PRN (Reason: severe pain) Qty: 20 0RF
gabapentin 100 mg Capsule
100 mg PO TID Qty: 30 0RF
Continued
aspirin 81 mg Tablet,Delayed Release (Dr/Ec)
81 mg PO DAILY
meclizine 25 mg Tablet
25 mg PO TIDPRN PRN (Reason: dizziness, vertigo)
fluticasone propion-salmeterol 100-50 mcg/dose Blister With Device
1 inh INHALATION BIDPRN PRN (Reason: SOB)
dutasteride 0.5 mg Capsule
0.5 mg PO DAILY
hydrochlorothiazide 12.5 mg Tablet
12.5 mg PO DAILY
nitroglycerin 0.4 mg tablet, sublingual
0.4 mg sublingual [id number] PRN (Reason: chest pain) Qty: 25 5RF
metformin 500 mg Tablet Extended Release 24hr
1,000 mg PO QPM
atorvastatin 40 mg tablet
40 mg PO DAILY
clopidogrel 75 mg tablet
75 mg PO DAILY
pantoprazole 40 mg tablet,delayed release (DR/EC)
40 mg PO BID Qty: 0 0RF
Discontinued
isosorbide mononitrate 30 mg Tablet Extended Release 24 Hr
30 mg PO DAILY
famotidine 20 mg Tablet
20 mg PO DAILY
losartan 25 mg Tablet
25 mg PO DAILY
metoprolol succinate 25 mg Tablet Extended Release 24 Hr
25 mg PO QPM
Discharge Orders:
Discharge Patient (As Directed); Ordered 07/05/24
Ordered By: Jenn Tolbert
Care Plan Goals
Care Plan Goals:
Problem: Readiness for enhanced knowledge related to diagnosis and treatment plan
Goal: Understand your diagnosis and treatment plan needs, including medications if applicable.
Instructions: Know your diagnosis, underlying causes and treatment plan options, including medications if applicable. Consult with your health care team to learn about your diagnosis and treatment plan, including medications if applicable.
Discharge Date and Time
Print Language: [place]
--- NOTE | 2024-07-05 09:08 | PTCARENOTE ---
Short burst of a fibb (less than 3 sec) with rates to 140 with ambulating to bathroom: Jenn CAMERON surg ENVIRONMENTAL STUDIES PROGRAM DIRECTOR aware. No new orders at this time.
--- NOTE | 2024-07-05 10:36 | CM ---
Chart reviewed. Patient is independent of ADLS, lives with his in a 2 S[address], 1 ROSA M, 0 DME. Plan is for the patient to return home with CT Transitional RN. CM to follow
[2024-07-05] MEDS: NOVOLOG FLEXPEN-MODERATE RESISTANCE SC (12:27)
[2024-07-05 12:29] LABS: Glucose - Point of Care 143 mg/dl (70-99)
--- NOTE | 2024-07-05 14:00 | PTCARENOTE ---
Shower: small amt of ooze from old med chest tube site. Redressed and instructions for home given. See flow record for remaining assessments
== END 2024-07-05 16:35 | disposition home or self-care (01) | DRG 231 ==
LOC: CVICU 14:11
PROVIDERS: Anesthesiology; Clinical Nurse Specialist Acute Care; Nurse Practitioner Adult Health; Physician Assistant Medical; ADMITTING PHYSICIAN Internal Medicine Cardiovascular Disease; ATTENDING PHYSICIAN Thoracic Surgery (Cardiothoracic Vascular Surgery); CONSULT PHYSICIAN Internal Medicine Critical Care Medicine; FAMILY PHYSICIAN Family Medicine
PROC: B24BZZ4 Ultrasonography of Heart with Aorta, Transesophageal (ICD-10-PCS; 2024-07-01)
PROC: B2111ZZ Fluoroscopy of Multiple Coronary Arteries using Low Osmolar Contrast (ICD-10-PCS; 2024-07-01)
PROC: 06BP4ZZ Excision of Right Saphenous Vein, Percutaneous Endoscopic Approach (ICD-10-PCS; 2024-07-01)
PROC: 30233N1 Transfusion of Nonautologous Red Blood Cells into Peripheral Vein, Percutaneous Approach (ICD-10-PCS; 2024-07-01)
PROC: 02100Z9 Bypass Coronary Artery, One Artery from Left Internal Mammary, Open Approach (ICD-10-PCS; 2024-07-01)
PROC: 30233R1 Transfusion of Nonautologous Platelets into Peripheral Vein, Percutaneous Approach (ICD-10-PCS; 2024-07-01)
PROC: 4A023N7 Measurement of Cardiac Sampling and Pressure, Left Heart, Percutaneous Approach (ICD-10-PCS; 2024-07-01)
PROC: 021009W Bypass Coronary Artery, One Artery from Aorta with Autologous Venous Tissue, Open Approach (ICD-10-PCS; 2024-07-01)
PROC: 5A09357 Assistance with Respiratory Ventilation, Less than 24 Consecutive Hours, Continuous Positive Airway Pressure (ICD-10-PCS; 2024-07-01)
PROC: 0BH17EZ Insertion of Endotracheal Airway into Trachea, Via Natural or Artificial Opening (ICD-10-PCS; 2024-07-01)
PROC: 027034Z Dilation of Coronary Artery, One Artery with Drug-eluting Intraluminal Device, Percutaneous Approach (ICD-10-PCS; 2024-07-01)
DX: I25.110 Atherosclerotic heart disease of native coronary artery with unstable angina pectoris (principal); T81.11XA Postprocedural cardiogenic shock, initial encounter; I97.51 Accidental puncture and laceration of a circulatory system organ or structure during a circulatory system procedure; I31.39 Other pericardial effusion (noninflammatory); I31.4 Cardiac tamponade; E87.29 Other acidosis; D62 Acute posthemorrhagic anemia; D68.8 Other specified coagulation defects; J98.11 Atelectasis; E87.1 Hypo-osmolality and hyponatremia; I10 Essential (primary) hypertension; E78.00 Pure hypercholesterolemia, unspecified; K21.9 Gastro-esophageal reflux disease without esophagitis; E11.9 Type 2 diabetes mellitus without complications; Y83.2 Surgical operation with anastomosis, bypass or graft as the cause of abnormal reaction of the patient, or of later complication, without mention of misadventure at the time of the procedure; Y84.0 Cardiac catheterization as the cause of abnormal reaction of the patient, or of later complication, without mention of misadventure at the time of the procedure; N40.0 Benign prostatic hyperplasia without lower urinary tract symptoms; E87.70 Fluid overload, unspecified; I25.2 Old myocardial infarction; Z79.02 Long term (current) use of antithrombotics/antiplatelets; Z79.84 Long term (current) use of oral hypoglycemic drugs; Z82.49 Family history of ischemic heart disease and other diseases of the circulatory system; Z79.899 Other long term (current) drug therapy; Z95.5 Presence of coronary angioplasty implant and graft
CPT/HCPCS: 93308; 71045; 71046; 80048; 80053; 82330; 82565; 82805; 82810; 82962; 83036; 83735; 84132; 84302; 85014; 85018; 85025; 85027; 85049; 85347; 85384; 85610; 85730; 86850; 86900; 86901; 86920; 93005; 93312; 93320; 93325; 93454; 94002; C1725; C1769; C1874; C1894; C9600; J2916; P9016; P9047; P9073; Q9967

== ENCOUNTER → 2024-08-04 14:31 | Outpatient (REF) | payer BC, SELFPAY | LOC: RAD 14:31 | PROVIDERS: ATTENDING PHYSICIAN Thoracic Surgery (Cardiothoracic Vascular Surgery); FAMILY PHYSICIAN Family Medicine | DX: R60.0 Localized edema (principal); Z95.1 Presence of aortocoronary bypass graft | CPT/HCPCS: 93971 ==

== ENCOUNTER 2024-08-16 09:13 | Outpatient (RCR) | payer BC, SELFPAY ==
[2024-08-08 09:56] LABS: Glucose - Point of Care 145 mg/dl (70-99)
[2024-08-08 10:36] LABS: Glucose - Point of Care 137 mg/dl (70-99)
[2024-08-11 08:34] LABS: Glucose - Point of Care 277 mg/dl (70-99)
[2024-08-11 09:27] LABS: Glucose - Point of Care 140 mg/dl (70-99)
[2024-08-16 08:36] LABS: Glucose - Point of Care 240 mg/dl (70-99)
[2024-08-16 09:22] LABS: Glucose - Point of Care 143 mg/dl (70-99)
== END 2024-08-16 23:59 | disposition home or self-care (01) ==
LOC: CRHB 09:13
PROVIDERS: ATTENDING PHYSICIAN Internal Medicine Cardiovascular Disease
DX: I25.10 Atherosclerotic heart disease of native coronary artery without angina pectoris (principal); Z95.5 Presence of coronary angioplasty implant and graft
CPT/HCPCS: 82962; 93797; 93798; G0422

== ENCOUNTER 2024-09-29 09:44 | Outpatient (RCR) | payer BC, SELFPAY ==
[2024-08-30 08:39] LABS: Glucose - Point of Care 140 mg/dl (70-99)
[2024-08-30 09:32] LABS: Glucose - Point of Care 105 mg/dl (70-99)
[2024-08-31 09:27] LABS: Glucose - Point of Care 95 mg/dl (70-99)
[2024-08-31 10:27] LABS: Glucose - Point of Care 104 mg/dl (70-99)
[2024-09-01 08:31] LABS: Glucose - Point of Care 136 mg/dl (70-99)
[2024-09-01 09:28] LABS: Glucose - Point of Care 109 mg/dl (70-99)
[2024-09-06 08:37] LABS: Glucose - Point of Care 153 mg/dl (70-99)
[2024-09-06 09:39] LABS: Glucose - Point of Care 112 mg/dl (70-99)
[2024-09-07 15:54] LABS: Glucose - Point of Care 190 mg/dl (70-99)
[2024-09-07 16:52] LABS: Glucose - Point of Care 93 mg/dl (70-99)
== END 2024-09-29 23:59 | disposition home or self-care (01) ==
LOC: CRHB 09:44
PROVIDERS: ATTENDING PHYSICIAN Internal Medicine Cardiovascular Disease
DX: I25.10 Atherosclerotic heart disease of native coronary artery without angina pectoris (principal); Z95.5 Presence of coronary angioplasty implant and graft; Z95.1 Presence of aortocoronary bypass graft
CPT/HCPCS: 82962; 93797; 93798

== ENCOUNTER 2024-10-13 09:38 | Outpatient (RCR) | payer BC, SELFPAY | END 2024-10-13 09:40 | disposition home or self-care (01) | LOC: CRHB 09:38 | PROVIDERS: ATTENDING PHYSICIAN Internal Medicine Cardiovascular Disease | DX: I25.10 Atherosclerotic heart disease of native coronary artery without angina pectoris (principal); Z95.5 Presence of coronary angioplasty implant and graft; Z95.1 Presence of aortocoronary bypass graft | CPT/HCPCS: 93797; 93798 ==